=== PATIENT | male | born 1985 | race Caucasian/White ===

== ENCOUNTER 2017-08-18 14:58 | Emergency (ER) | payer SELFPAY ==
[~2017-08-18] VITALS: Ht 180.3 cm; Wt 95.0 kg
[2017-08-18 15:02] VITALS: BP 131/78; PULSE 64; RESP 19; TEMP 98.4; O2SAT 98
[2017-08-18] MEDS ORDERED: diphenhydrAMINE HCL 50 MG/ML VIAL IV PUSH ONE (15:15)
[2017-08-18] MEDS ORDERED: PROCHLORPERAZINE INJ 10 MG/2 ML VIAL IV PUSH ONE (15:15)
[2017-08-18] MEDS ORDERED: KETOROLAC TROMETHAMINE 30 MG/ML (IVP) VIAL IV PUSH ONE (15:15)
[2017-08-18] MEDS ORDERED: SODIUM CHLOR 0.9% 1000 ML INJ 1,000 ML IV ONE (15:15)
--- NOTE | 2017-08-18 15:25 | PD ---
HPI Chief Complaint: Headache Time Seen by Provider: 15:15 Travel History International Travel<30 days: No Contact w/Intl Traveler<30days: No Traveled to known affect area: No History of Present Illness HPI The patient is a 31-year-old male who presents to the emergency department via private vehicle for headache. The patient states he developed a headache several weeks ago. The patient notes he has a history of substance abuse and his mother took him to [place], [place], for rehabilitation. However, the rehabilitation center stated they could not help the patient secondary to his headache and referred him to [facility]. The patient was at and was admitted for a headache according to the mother. The mother states the patient had a CT of the brain as well as an MRI which apparently revealed some type of hydrocephalus with some type of cyst. The mother states that the patient was told he would need a procedure that [facility] was unable to perform. They attempted to transfer the patient to the [facility], however, [facility] would not accept the patient secondary to his insurance status. The mother states they were going to refer the patient to a neurosurgeon in [facility]. However, the mother then decided they would leave and the patient was discharged. The mother then drove from [place], [place] to the local hospital here in [place], [place] to be evaluated. The patient's headache is located in the posterior aspect of his head and radiates up to the front. He does complain of mild neck pain as well as photophobia, nausea, vomiting. He denies any urinary or fecal incontinence. He denies any weakness of the arms or legs. Symptoms are moderate. There have been no alleviating factors. PFSH Past Medical History Medical History: Denies Significant Hx Diminished Hearing: No Tetanus Vaccination: < 5 Years Influenza Vaccination: No ?: Not Past Surgical History Surgical History: No Previous Surgery Social History Alcohol Use: No (1 week clean) Tobacco Use: Yes (1 ppd) Substance Use: Yes (cocaine, dilaudid,opiates) Allergies-Medications (Allergen,Severity, Reaction): Coded Allergies: No Known Allergies (Unverified , 08/18/17) Reported Meds & Prescriptions Reported Meds & Active Scripts Active No Active Prescriptions or Reported Medications Review of Systems Except as stated in HPI: all other systems reviewed are Neg General / Constitutional: No: Fever, Chills Eyes: Positive: Photophobia, No: Blurred Vision HENT: Positive: Headaches, Neck Pain, No: Neck Stiffness Cardiovascular: No: Chest Pain or Discomfort Respiratory: No: Shortness of Breath Gastrointestinal: Positive: Nausea, Vomiting, No: Abdominal Pain Musculoskeletal: No: Weakness Neurologic: Positive: Headache, No: Weakness, Dizziness, Focal Abnormalities, Coordination Problem, Change in Mentation, Slurred Speech, Paresthesia, Sensory Disturbance Psychiatric: Positive: Substance Abuse Physical Exam Narrative GENERAL: Awake, alert, pleasant 31-year-old male who appears his stated age and is in no acute respiratory distress. SKIN: Focused skin assessment warm/dry. HEAD: Atraumatic. Normocephalic. EYES: Pupils equal and round. Pupils are 4 mm bilateral and reactive. EOMs are intact. ENT: No nasal bleeding or discharge. Mucous membranes pink and moist. NECK: Trachea midline. No JVD. Full range of motion with flexion and extension as well as rotation. No meningeal signs noted. CARDIOVASCULAR: Regular rate and rhythm. No murmur appreciated. RESPIRATORY: No accessory muscle use. Clear to auscultation. Breath sounds equal bilaterally. GASTROINTESTINAL: Abdomen soft, non-tender, nondistended. MUSCULOSKELETAL: No obvious deformities. No clubbing. No cyanosis. No edema. NEUROLOGICAL: Awake and alert. No obvious cranial nerve deficits. Motor grossly within normal limits. Normal speech. Nonfocal. No drift of the upper or lower extremities. Strength with flexion extension of the elbows bilateral is 5 out of 5. Regulatory Process Manager is 5 out of 5. Flexion of the hips bilateral is 5 out of 5. Extension the knee is 5 out of 5. Plantarflexion is 5 out of 5. Dorsiflexion 5 out of 5. Flexion the great toes bilateral is 5 out of 5. Sensation is intact on the upper and lower extremities bilaterally, and is symmetrical. PSYCHIATRIC: Appropriate mood and affect; insight and judgment normal. Data Data Last Documented VS Vital Signs Date Time Temp Pulse Resp B/P (MAP) Pulse Ox O2 Delivery O2 Flow Rate FiO2 08/18/17 21:36 67 18 119/64 (82) 97 Room Air 08/18/17 15:02 98.4 Orders Orders Mri Brain W&W/O Contrast (08/18/17 ) Complete Blood Count With Diff (08/18/17 15:15) Comprehensive Metabolic Panel (08/18/17 15:15) Westergren Sedimentation Rate (08/18/17 15:15) C-Reactive Protein (Crp) (08/18/17 15:15) Prochlorperazine Inj (Compazine Inj) (08/18/17 15:15) Diphenhydramine Inj (Benadryl Inj) (08/18/17 15:15) Ketorolac Inj (Toradol Inj) (08/18/17 15:15) Sodium Chlor 0.9% 1000 Ml Inj (Ns 1000 M (08/18/17 15:15) Gadodiamide Pf Inj (Omniscan Pf Inj) (08/18/17 16:35) Radiology Film Requests (08/18/17 ) Labs Laboratory Tests Test 08/18/17 15:20 White Blood Count 16.1 TH/MM3 Red Blood Count 5.24 MIL/MM3 Hemoglobin 15.9 GM/DL Hematocrit 46.5 % Mean Corpuscular Volume 88.8 FL Mean Corpuscular Hemoglobin 30.4 PG Mean Corpuscular Hemoglobin Concent 34.3 % Red Cell Distribution Width 12.8 % Platelet Count 244 TH/MM3 Mean Platelet Volume 9.3 FL Neutrophils (%) (Auto) 78.9 % Lymphocytes (%) (Auto) 14.0 % Monocytes (%) (Auto) 7.0 % Eosinophils (%) (Auto) 0.0 % Basophils (%) (Auto) 0.1 % Neutrophils # (Auto) 12.7 TH/MM3 Lymphocytes # (Auto) 2.3 TH/MM3 Monocytes # (Auto) 1.1 TH/MM3 Eosinophils # (Auto) 0.0 TH/MM3 Basophils # (Auto) 0.0 TH/MM3 CBC Comment DIFF FINAL Differential Comment Erythrocyte Sedimentation Rate 6 mm/hr Blood Urea Nitrogen 22 MG/DL Creatinine 1.09 MG/DL Random Glucose 118 MG/DL Total Protein 8.2 GM/DL Albumin 4.4 GM/DL Calcium Level 9.4 MG/DL Alkaline Phosphatase 71 U/L Aspartate Amino Transf (AST/SGOT) 12 U/L Alanine Aminotransferase (ALT/SGPT) 65 U/L Total Bilirubin 0.7 MG/DL Sodium Level 139 MEQ/L Potassium Level 4.0 MEQ/L Chloride Level 104 MEQ/L Carbon Dioxide Level 25.4 MEQ/L Anion Gap 10 MEQ/L Estimat Glomerular Filtration Rate 80 ML/MIN C-Reactive Protein LESS THAN 0.29 MG/DL [facility] Medical Decision Making Medical Screen Exam Complete: Yes Emergency Medical Condition: Yes Medical Record Reviewed: Yes Interpretation(s) Last Impressions Brain MRI 08/18/17 0000 Signed Impressions: CONCLUSION: 1. Unilateral right-sided lateral ventricular enlargement causing 13 mm midlin e shift of the third ventricle towards the left and narrowing of the aqueduct o f Sylvius. There is also asymmetric white matter edema in the right supratentor ial brain. 2. No abnormal enhancing masses seen Laboratory Tests Test 08/18/17 15:20 White Blood Count 16.1 TH/MM3 Red Blood Count 5.24 MIL/MM3 Hemoglobin 15.9 GM/DL Hematocrit 46.5 % Mean Corpuscular Volume 88.8 FL Mean Corpuscular Hemoglobin 30.4 PG Mean Corpuscular Hemoglobin Concent 34.3 % Red Cell Distribution Width 12.8 % Platelet Count 244 TH/MM3 Mean Platelet Volume 9.3 FL Neutrophils (%) (Auto) 78.9 % Lymphocytes (%) (Auto) 14.0 % Monocytes (%) (Auto) 7.0 % Eosinophils (%) (Auto) 0.0 % Basophils (%) (Auto) 0.1 % Neutrophils # (Auto) 12.7 TH/MM3 Lymphocytes # (Auto) 2.3 TH/MM3 Monocytes # (Auto) 1.1 TH/MM3 Eosinophils # (Auto) 0.0 TH/MM3 Basophils # (Auto) 0.0 TH/MM3 CBC Comment DIFF FINAL Differential Comment Blood Urea Nitrogen 22 MG/DL Creatinine 1.09 MG/DL Random Glucose 118 MG/DL Total Protein 8.2 GM/DL Albumin 4.4 GM/DL Calcium Level 9.4 MG/DL Alkaline Phosphatase 71 U/L Aspartate Amino Transf (AST/SGOT) 12 U/L Alanine Aminotransferase (ALT/SGPT) 65 U/L Total Bilirubin 0.7 MG/DL Sodium Level 139 MEQ/L Potassium Level 4.0 MEQ/L Chloride Level 104 MEQ/L Carbon Dioxide Level 25.4 MEQ/L Anion Gap 10 MEQ/L Estimat Glomerular Filtration Rate 80 ML/MIN C-Reactive Protein LESS THAN 0.29 MG/DL Differential Diagnosis Differential diagnosis includes migraine, hydrocephalus, obstructive hydrocephalus, subarachnoid cyst, Chiari malformation, brain tumor, tension headache, malingering, drug-seeking behavior, rebound headache. Narrative Course IV was established, labs are drawn and sent, the patient was placed on cardiac telemetry monitoring and continuous pulse oximetry monitoring. MRI the brain with and without contrast was ordered. An attempt to obtain the records from was performed. The patient was administered Toradol, Compazine, Benadryl, and IV fluids. Laboratory evaluation reveals a mildly elevated white count of 16, otherwise, labs are unremarkable. MRI of the brain does reveal an abnormality with unilateral obstruction of the third ventricle with midline shift. I discussed the patient with the on-call neurosurgeon, Dr. Reyes, 6:30 PM who will evaluate the MRI and review the MRI with the radiologist. Dr. Reyes evaluated the MRI and recommended transfer to a tertiary center. The patient was transferred by Dr. Chávez. Diagnosis Primary Impression: Hydrocephalus Scripts No Active Prescriptions or Reported Meds Disposition: 70 TRANSFER TO OTHER FACILITY Condition: Stable Leodan Muhammad MD Aug 18, 2017 15:25
[2017-08-18 15:32] LABS: AUTOMATED NEUTROPHIL # 12.7 TH/MM3 (1.8-7.7); BASOPHIL % 0.1 % (0.0-2.0); HEMATOCRIT 46.5 % (39.0-51.0); HEMOGLOBIN 15.9 GM/DL (13.0-17.0); LYMPHOCYTE # 2.3 TH/MM3 (1.0-4.8); MEAN CELL VOLUME 88.8 FL (80.0-100.0); MEAN CORPUSCULAR HEMOGLOBIN 30.4 PG (27.0-34.0); MEAN CORPUSCULAR HGB CONC 34.3 % (32.0-36.0); MEAN PLATELET VOLUME 9.3 FL (7.0-11.0); MONOCYTE # 1.1 TH/MM3 (0-0.9); NEUT % 78.9 % (16.0-70.0); PLATELET COUNT 244 TH/MM3 (150-450); RED BLOOD COUNT 5.24 MIL/MM3 (4.50-5.90); RED CELL DISTRIBUTION WIDTH 12.8 % (11.6-17.2); WHITE BLOOD COUNT 16.1 TH/MM3 (4.0-11.0)
[2017-08-18 16:03] LABS: ALBUMIN 4.4 GM/DL (3.4-5.0); ALT (GPT) 65 U/L (12-78); AST (GOT) 12 U/L (15-37); BICARBONATE 25.4 MEQ/L (21.0-32.0); BLOOD UREA NITROGEN 22 MG/DL (7-18); C-REACTIVE PROTEIN LESS THAN 0.29 MG/DL (0.00-0.30); CALCIUM 9.4 MG/DL (8.5-10.1); CHLORIDE 104 MEQ/L (98-107); CREATININE 1.09 MG/DL (0.60-1.30); GLOMERULAR FILTRATION RATE 80 ML/MIN (>89); GLUCOSE,RANDOM 118 MG/DL (74-106); SODIUM (NA) 139 MEQ/L (136-145)
[2017-08-18 16:05] LABS: ALKALINE PHOSPHATASE 71 U/L (45-117); TOTAL BILIRUBIN ADULT 0.7 MG/DL (0.2-1.0); TOTAL PROTEIN 8.2 GM/DL (6.4-8.2)
[2017-08-18] MEDS ORDERED: GADODIAMIDE PF 287 MG/ML 20 ML VIAL (for RAD MRI) IVCONTRAST ONE (16:35)
[2017-08-18 17:07] VITALS: BP 114/69; PULSE 55; RESP 16; O2SAT 99
--- NOTE | 2017-08-18 17:10 | RADRPT ---
EXAM DATE: 08/18/2017 4:48 PM EDT AGE/SEX: 31 years / Male INDICATIONS: Cephalgia. CLINICAL DATA: This is the patient's initial encounter. Patient reports that signs and symptoms have been present for 2 days and indicates a pain score of 4/10. MEDICAL/SURGICAL HISTORY: None. None. COMPARISON: No prior exams available for comparison. TECHNIQUE: Multiplanar, multisequence examination of the brain was performed without and with 18cc ml Omniscan (gadodiamide) contrast as a single exam dose. FINDINGS: Cerebrum: There is unilateral hydrocephalus on the right side with dilation of the lateral ventricle and deviation of the third ventricle towards the left. The left lateral ventricle is normal in size. No definite mass seen. The cause of the ventricular obstruction is not evident. There is narrowing o f the aqueduct of Sylvius. There is a lacunar infarct in the genu of the right internal capsule. No f ocal blood products seen. No focal areas of restricted diffusion. There is mild diffuse white matter edema in the right supratentorial brain. The cortex of the left and right hemisphere as a symmetric a ppearance. White Matter: No significant signal abnormalities are seen in the white matter. Posterior Fossa: The cerebellum and brainstem are intact. The 4th ventricle is midline. The cerebel lopontine angle is unremarkable. The cerebellar tonsils are normal in position. Extracranial: The visualized portions of the orbits and paranasal sinuses are unremarkable. There is hypertrophy of the atlantoaxial articulation causing some narrowing of the craniocervical canal, but there is still CSF seen about the brainstem. Post Contrast: No abnormal areas of parenchymal or dural enhancement. No evidence of blood-brain ba rrier breakdown. CONCLUSION: 1. Unilateral right-sided lateral ventricular enlargement causing 13 mm midline shift of the third v entricle towards the left and narrowing of the aqueduct of Sylvius. There is also asymmetric white ma tter edema in the right supratentorial brain. 2. No abnormal enhancing masses seen Electronically signed by: Felix Hinds MD 08/18/2017 5:09 PM EDT
--- NOTE | 2017-08-18 21:09 | PD ---
Data Data Last Documented VS Vital Signs Date Time Temp Pulse Resp B/P (MAP) Pulse Ox O2 Delivery O2 Flow Rate FiO2 08/18/17 17:07 55 16 114/69 (84) 99 Room Air 08/18/17 15:02 98.4 Orders Orders Mri Brain W&W/O Contrast (08/18/17 ) Complete Blood Count With Diff (08/18/17 15:15) Comprehensive Metabolic Panel (08/18/17 15:15) Westergren Sedimentation Rate (08/18/17 15:15) C-Reactive Protein (Crp) (08/18/17 15:15) Prochlorperazine Inj (Compazine Inj) (08/18/17 15:15) Diphenhydramine Inj (Benadryl Inj) (08/18/17 15:15) Ketorolac Inj (Toradol Inj) (08/18/17 15:15) Sodium Chlor 0.9% 1000 Ml Inj (Ns 1000 M (08/18/17 15:15) Gadodiamide Pf Inj (Omniscan Pf Inj) (08/18/17 16:35) Labs Laboratory Tests Test 08/18/17 15:20 White Blood Count 16.1 TH/MM3 Red Blood Count 5.24 MIL/MM3 Hemoglobin 15.9 GM/DL Hematocrit 46.5 % Mean Corpuscular Volume 88.8 FL Mean Corpuscular Hemoglobin 30.4 PG Mean Corpuscular Hemoglobin Concent 34.3 % Red Cell Distribution Width 12.8 % Platelet Count 244 TH/MM3 Mean Platelet Volume 9.3 FL Neutrophils (%) (Auto) 78.9 % Lymphocytes (%) (Auto) 14.0 % Monocytes (%) (Auto) 7.0 % Eosinophils (%) (Auto) 0.0 % Basophils (%) (Auto) 0.1 % Neutrophils # (Auto) 12.7 TH/MM3 Lymphocytes # (Auto) 2.3 TH/MM3 Monocytes # (Auto) 1.1 TH/MM3 Eosinophils # (Auto) 0.0 TH/MM3 Basophils # (Auto) 0.0 TH/MM3 CBC Comment DIFF FINAL Differential Comment Blood Urea Nitrogen 22 MG/DL Creatinine 1.09 MG/DL Random Glucose 118 MG/DL Total Protein 8.2 GM/DL Albumin 4.4 GM/DL Calcium Level 9.4 MG/DL Alkaline Phosphatase 71 U/L Aspartate Amino Transf (AST/SGOT) 12 U/L Alanine Aminotransferase (ALT/SGPT) 65 U/L Total Bilirubin 0.7 MG/DL Sodium Level 139 MEQ/L Potassium Level 4.0 MEQ/L Chloride Level 104 MEQ/L Carbon Dioxide Level 25.4 MEQ/L Anion Gap 10 MEQ/L Estimat Glomerular Filtration Rate 80 ML/MIN C-Reactive Protein LESS THAN 0.29 MG/DL MDM Medical Record Reviewed: Yes Supervised Visit with IGNACIO: No Narrative Course Patient was seen by Dr. Reyes, neurosurgeon. Patient will be transferred to [facility] for further treatment. Diagnosis Primary Impression: Hydrocephalus Scripts No Active Prescriptions or Reported Meds Condition: Stable Laura Chávez DO Aug 18, 2017 21:09
--- NOTE | 2017-08-18 21:21 | PD.CONS ---
History of Present Illness Service Neurosurgery Consult Requested By Emergency room Reason for Consult Hydrocephalus Primary Care Physician No Primary Care Physician Diagnoses: History of Present Illness 31-year-old male brought to the emergency room today by his family. The patient complains of a few weeks, possibly a few months of mild to moderate intermittent headache. The headache has become quite a bit more severe in the past couple of weeks. Apparently at least partly due to the headache, he has been using alcohol and other substances to try to control the pain. His family took him to the substance rehabilitation Center in [place]. His headaches remain uncontrolled and they discharged him to [facility] in [place] for neurology and neurosurgery evaluation. He was seen for neurosurgical consultation yesterday, and was felt to potentially need a ventricular endoscopic procedure. The family states that a second neurosurgeon saw the patient this morning and advised him that it would take the hospital a week to get the equipment, and the neurosurgeon experienced in endoscopic procedures would be gone from the hospital for a week. He was subsequently discharged to the care of his family today. His mother states that the patient has been progressively lethargic for the past couple of days. He has complained of an extremely severe headache for 2 days. He has had nausea and emesis. He had one episode of emesis before he left the hospital this morning, and another episode since he left. He does complain of photophobia as well as approximately a week of progressive neck pain and stiffness. He denies any fevers chills or sweats. Review of Systems Constitutional: DENIES: Fever, Chills, Dizziness Ears, nose, mouth, throat: DENIES: Hearing loss, Vertigo, Throat pain, Ear Pain Cardiovascular: DENIES: Chest pain Gastrointestinal: COMPLAINS OF: Nausea, Vomiting, DENIES: Abdominal pain Musculoskeletal: COMPLAINS OF: Muscle aches, Stiffness, Neck pain, DENIES: Joint pain Hematologic/lymphatic: DENIES: Bruising Neurologic: COMPLAINS OF: Headache, DENIES: Abnormal gait Psychiatric: DENIES: Confusion Past Family Social History Allergies: Coded Allergies: No Known Allergies (Unverified , 08/18/17) Past Medical History No history of significant cardiac pulmonary gastrointestinal disease diabetes or hypertension Past Surgical History No major surgeries reported Reported Medications Reported Meds & Active Scripts Active No Active Prescriptions or Reported Medications Social History Smokes 1 pack cigarettes a day History of excessive alcohol use history of substance abuse. Physical Exam Vital Signs Vital Signs Date Time Temp Pulse Resp B/P (MAP) Pulse Ox O2 Delivery O2 Flow Rate FiO2 08/18/17 17:07 55 16 114/69 (84) 99 Room Air 08/18/17 15:02 98.4 64 19 131/78 (95) 98 Physical Exam GENERAL: This is a well-nourished, well-developed patient, appears uncomfortable in the emergency room SKIN: No rashes, ecchymoses or lesions. Cool and dry. HEAD: Atraumatic. Normocephalic. No temporal or scalp tenderness. EYES: Sclera clear and nonicteric ENT: Oropharynx clear. No cervical lymphadenopathy NECK: Moderate diffuse cervical paraspinous muscle tenderness. Complains of neck discomfort with range of motion but no definite nuchal rigidity CARDIOVASCULAR: Pulse regular RESPIRATORY: Respirations clear, nonlabored, regular GASTROINTESTINAL: Abdomen soft, non-tender, nondistended. No hepato-splenomegaly , or palpable masses. No guarding. MUSCULOSKELETAL: Extremities without clubbing, cyanosis, or edema. No joint tenderness, effusion, or edema noted. No calf tenderness. NEUROLOGICAL: Mild to moderate lethargy. He falls asleep readily if not stimulated. He arouses readily to voice His speech is clear He answers simple questions appropriately Appears to have diminished judgment and insight Exhibits mild anxiety Moderate eye-opening Pupils 3 mm brisk reactive to 2 mm Extraocular movements intact except for question of mild impairment of upward gaze. Visual king intact to confrontation Facial sensorimotor, tongue, palate, sternocleidomastoid testing, bilateral shoulder shrug are intact Sensation intact light touch all extremities Strength within normal limits all extremity major flexion and extension groups Isabel's response absent bilateral No ankle clonus Laboratory Laboratory Tests Test 08/18/17 15:20 White Blood Count 16.1 Red Blood Count 5.24 Hemoglobin 15.9 Hematocrit 46.5 Mean Corpuscular Volume 88.8 Mean Corpuscular Hemoglobin 30.4 Mean Corpuscular Hemoglobin Concent 34.3 Red Cell Distribution Width 12.8 Platelet Count 244 Mean Platelet Volume 9.3 Neutrophils (%) (Auto) 78.9 Lymphocytes (%) (Auto) 14.0 Monocytes (%) (Auto) 7.0 Eosinophils (%) (Auto) 0.0 Basophils (%) (Auto) 0.1 Neutrophils # (Auto) 12.7 Lymphocytes # (Auto) 2.3 Monocytes # (Auto) 1.1 Eosinophils # (Auto) 0.0 Basophils # (Auto) 0.0 CBC Comment DIFF FINAL Differential Comment Blood Urea Nitrogen 22 Creatinine 1.09 Random Glucose 118 Total Protein 8.2 Albumin 4.4 Calcium Level 9.4 Alkaline Phosphatase 71 Aspartate Amino Transf (AST/SGOT) 12 Alanine Aminotransferase (ALT/SGPT) 65 Total Bilirubin 0.7 Sodium Level 139 Potassium Level 4.0 Chloride Level 104 Carbon Dioxide Level 25.4 Anion Gap 10 Estimat Glomerular Filtration Rate 80 C-Reactive Protein LESS THAN 0.29 Result Diagram: 08/18/17 1520 08/18/17 1520 Imaging 08/18/2017 MRI brain images are reviewed. MRI brain with and without contrast report from [facility] is reviewed. There is at least moderate right and mild left ventriculomegaly with subtle enhancement along the frontal horn of the right and left lateral ventricle extending across the region of the corpus callosum . Brain MRI 08/18/17 0000 Signed Impressions: CONCLUSION: 1. Unilateral right-sided lateral ventricular enlargement causing 13 mm midlin e shift of the third ventricle towards the left and narrowing of the aqueduct o f Sylvius. There is also asymmetric white matter edema in the right supratentor ial brain. 2. No abnormal enhancing masses seen Assessment and Plan Assessment and Plan Impression: 1. Right greater than left asymmetric hydrocephalus. Possible subtle enhancement along the ventricle extending towards the interventricular foramen. Plan: Findings were discussed at length with the patient's family in the emergency room. I advised him that a ventriculostomy could be placed with cultures and CSF cytology obtained. Depending on results a ventriculoperitoneal shunt could be placed. However this would not be a definitive treatment for the underlying cause of the hydrocephalus. Option of transfer to tertiary care center for further evaluation including possible endoscopic ventricular procedure discussed. Call placed to [facility] transfer center. Patient accepted for transfer following discussion with neurosurgery. Patient family advised and agree with this plan. Patient presently appears neurologically stable for ground transfer. Maximus Reyes MD Aug 18, 2017 21:21
[2017-08-18 21:36] VITALS: BP 119/64; PULSE 67; RESP 18; O2SAT 97
== END 2017-08-18 22:50 | disposition short-term general hospital (02) ==
LOC: NEPE 14:58
DX: G91.9 Hydrocephalus, unspecified (principal); M54.2 Cervicalgia; R11.2 Nausea with vomiting, unspecified; H53.149 Visual discomfort, unspecified; F17.210 Nicotine dependence, cigarettes, uncomplicated; F14.10 Cocaine abuse, uncomplicated; F11.10 Opioid abuse, uncomplicated
CPT/HCPCS: 70553; 80053; 85025; 85652; 86140; 96361; 96374; 99285; A9579; J0780; J1200; J1885; J7030

== ENCOUNTER 2017-08-23 19:11 | Inpatient (IN) | payer SELFPAY ==
[~2017-08-23] VITALS: Ht 180.3 cm; Wt 92.0 kg
[2017-08-23] MEDS ORDERED: NALOXONE HCL 0.4 MG/ML AMP IV PUSH PRN (19:45)
[2017-08-23 20:00] VITALS: BP 120/72; PULSE 67; RESP 18; TEMP 97.8; O2SAT 100
[2017-08-23] MEDS ORDERED: BUTATAB6 PO (23:04)
[2017-08-23] MEDS ORDERED: LEVE500T8 PO (23:06)
[2017-08-23] MEDS ORDERED: METR1INJ2 (23:12)
[2017-08-23] MEDS: ACETAMIN 325 MG/BUTALBITAL 50 MG/CAFFEINE 40 MG TAB PO PRN (23:52)
[2017-08-24 00:59] VITALS: BP 126/77; PULSE 77; RESP 18; TEMP 98; O2SAT 98
[2017-08-24] MEDS: NICOTINE 14 MG/24 HR PATCH T-DERMAL SCH ×2 (00:59→07:13)
[2017-08-24] MEDS: metroNIDAZOLE 500 MG INJ 100 ML IV SCH ×3 (00:59→22:24)
[2017-08-24] MEDS: levETIRAcetam 500 MG TAB PO SCH ×2 (07:12→20:50)
[2017-08-24] MEDS: REMOVE OLD PATCH T-DERMAL SCH (07:13)
[2017-08-24] MEDS: ACETAMIN 325 MG/BUTALBITAL 50 MG/CAFFEINE 40 MG TAB PO PRN ×2 (07:13→21:44)
[2017-08-24 07:37] VITALS: BP 109/75; PULSE 67; RESP 18; TEMP 98.2; O2SAT 98
[2017-08-24 08:21] LABS: AUTOMATED NEUTROPHIL # 3.8 TH/MM3 (1.8-7.7); BASOPHIL # 0.1 TH/MM3 (0-0.2); BASOPHIL % 0.8 % (0.0-2.0); EOSINOPHIL # 0.1 TH/MM3 (0-0.4); HEMATOCRIT 41.1 % (39.0-51.0); HEMOGLOBIN 13.9 GM/DL (13.0-17.0); LYMPH % 36.3 % (9.0-44.0); LYMPHOCYTE # 2.7 TH/MM3 (1.0-4.8); MEAN CELL VOLUME 89.8 FL (80.0-100.0); MEAN CORPUSCULAR HEMOGLOBIN 30.4 PG (27.0-34.0); MEAN CORPUSCULAR HGB CONC 33.9 % (32.0-36.0); MEAN PLATELET VOLUME 10.7 FL (7.0-11.0); MONO % 9.2 % (0.0-8.0); MONOCYTE # 0.7 TH/MM3 (0-0.9); NEUT % 51.7 % (16.0-70.0); PLATELET COUNT 185 TH/MM3 (150-450); RED BLOOD COUNT 4.57 MIL/MM3 (4.50-5.90); RED CELL DISTRIBUTION WIDTH 12.6 % (11.6-17.2); WHITE BLOOD COUNT 7.4 TH/MM3 (4.0-11.0)
[2017-08-24 08:40] LABS: BICARBONATE 23.3 MEQ/L (21.0-32.0); CALCIUM 9.4 MG/DL (8.5-10.1); CREATININE 0.86 MG/DL (0.60-1.30)
--- NOTE | 2017-08-24 09:35 | RADRPT ---
EXAM DATE: 08/24/2017 9:28 AM EDT AGE/SEX: 31 years / Male INDICATIONS: Post ventriculostomy. CLINICAL DATA: This is the patient's initial encounter. Patient reports that signs and symptoms have been present for 1 day and indicates a pain score of 0/10. MEDICAL/SURGICAL HISTORY: None. . ventriculostomy. RADIATION DOSE: 38.53 CTDI (mGy) COMPARISON: [facility], MRI BRAIN W & W/O CONTRAST, 08/18/2017. . TECHNIQUE: CT of the head without contrast. Using automated exposure control and adjustment of the mA and/or kV according to patient size, radiation dose was kept as low as reasonably achievable to ob tain optimal diagnostic quality images. FINDINGS: There has been interval decrease in the size of the right ventricle compared to the previou s MRI dated 08/18/2017. There has also been resolution of the previously noted subfalcine herniation to the left. Old lacunar infarct is noted within the right basal ganglia. There is no acute hemorrhage, mass effect or extra-axial bleed. The patient demonstrates a defect within the right frontal bone li bridgett related to previous ventriculostomy. No radiopaque shunt is identified on today's examination. CONCLUSION: 1. Interval improvement of the right ventricular dilatation and subfalcine herniation to the left. 2. 2. Old lacunar infarct within the right basal ganglia. 3. 3. No acute hemorrhage, acute infarct, mass effect or extra-axial bleed. Electronically signed by: Irineo Haley MD 08/24/2017 9:34 AM EDT
[2017-08-24 12:10] VITALS: BP 119/78; PULSE 92; RESP 18; TEMP 97.9; O2SAT 100
[2017-08-24 16:12] VITALS: BP 129/82; PULSE 83; RESP 20; TEMP 98.3; O2SAT 99
--- NOTE | 2017-08-24 19:28 | HHI.HP ---
HPI Service Neurosurgery Primary Care Physician Unknown Chief Complaint: Headache History of Present Illness 31-year-old male with a history of substance abuse including IV drug abuse who was recently admitted to inpatient rehabilitation center in [place] for treatment. In the treatment center, he experienced progressive headaches and blurred vision with nausea and was discharged to [facility] in [place] on 08/16/2017 for evaluation. He was seen by neurosurgery. An MRI reported positive hydrocephalus. He was felt to be a candidate for an endoscopic terminal ventriculostomy procedure. Since the procedure was not readily available at the hospital, he was discharged to the care of his family on 08/18/2017. He presented to [facility] on the early evening of 08/18/2017 with persistent headache, blurred vision, lethargy, nausea and emesis. A follow -up scan showed persistent primarily right-sided ventriculomegaly without a definite obstructive lesion. He was transferred directly to [facility] for evaluation. He underwent an initial ventriculostomy placement, followed by surgery for endoscopic terminal ventriculostomy. He remained initially in the neurosurgical intensive care postoperatively. He was seen by infectious disease. Specific cause for the hydrocephalus was not determined. There was a question of ventriculitis related to Endo toxins secondary to the patient using cotton filter during IV drug use a few weeks prior to his admission. It was elected to place the patient on IV cefepime 6 g continuous infusion, vancomycin 1250 mg IV every 8 hours with vancomycin goal level 15-20, and Flagyl 500 mg IV every 8 hours with transitioning to oral Flagyl on discharge, all with stop date 09/04/2017. The patient was transferred back to [facility] on the evening of 08/23/2017. Discharge summary with recommendations received from [facility] today. Review of Systems Constitutional: COMPLAINS OF: Fatigue, DENIES: Fever Eyes: COMPLAINS OF: Blurred vision Ears, nose, mouth, throat: DENIES: Hearing loss, Throat pain Cardiovascular: DENIES: Chest pain Gastrointestinal: DENIES: Abdominal pain, Diarrhea, Nausea, Vomiting Musculoskeletal: DENIES: Joint pain, Muscle aches Hematologic/lymphatic: DENIES: Bruising Neurologic: COMPLAINS OF: Headache, DENIES: Abnormal gait Psychiatric: COMPLAINS OF: Anxiety Past Family Social History Allergies: Coded Allergies: No Known Allergies (Unverified , 08/18/17) Past Medical History No history of significant cardiac pulmonary gastrointestinal disease diabetes hypertension. Hydrocephalus Recent diagnosis hepatitis C antibody positive. Hepatitis C viral load results pending at the time of discharge from [facility]. Past Surgical History Endoscopic terminal ventriculostomy August 2017 Reported Medications Reported Meds & Active Scripts Active Reported Metronidazole 500-0.79 mg/100Ml-% (Metronidazole in NaCl) 500 Mg/100 Ml Inj Levetiracetam 500 Mg Tab 500 Mg PO BID Osporjxdgw-Einixjidizijp-Zahyqkhc 50-325-40 Mg Tab 1 Tab PO Q4HR Do not exceed 6 tablets/day. Antibiotics as noted above Family History Negative neurologic disorders, cardiac disease Social History Substance abuse Smokes 1 pack cigarettes per day History of excessive alcohol use Physical Exam Vital Signs Vital Signs Date Time Temp Pulse Resp B/P (MAP) Pulse Ox O2 Delivery O2 Flow Rate FiO2 08/24/17 16:12 98.3 83 20 129/82 (98) 99 08/24/17 12:10 97.9 92 18 119/78 (92) 100 08/24/17 07:37 98.2 67 18 109/75 (86) 98 08/24/17 00:59 98.0 77 18 126/77 (93) 98 08/23/17 20:00 97.8 67 18 120/72 (88) 100 Physical Exam GENERAL: This is a well-nourished, well-developed patient, no apparent distress. SKIN: No abrasions, contusion, rash noted. Skin warm and dry. HEAD: Right frontal incision dry and intact EYES: Sclerae are clear and nonicteric ENT: No facial edema or ecchymosis. No periorbital edema. No CSF otorrhea or rhinorrhea. No palpable facial fracture or deformity. NECK: Trachea midline. No cervical spine tenderness. CARDIOVASCULAR: Regular rate and rhythm without murmurs, gallops, or rubs. RESPIRATORY: Clear to auscultation. Breath sounds equal bilaterally. No wheezes , rales, or rhonchi. GASTROINTESTINAL: Abdomen soft, non-tender, nondistended. No hepato-splenomegaly , or palpable masses. No guarding. MUSCULOSKELETAL: Extremities without cyanosis, or edema. No joint tenderness, or edema noted. No calf tenderness. Dorsalis pedis pulses 2+ bilateral NEUROLOGICAL: Awake and alert Oriented X 3 Speech is clear Conversant and appropriate Follow simple commands well Answers questions appropriately Reasonable judgment and insight Recent and remote memory are intact No evidence of anxiety or depression Pupils are equal and reactive to accommodation. Extra-ocular movements, visual king to confrontation, facial sensorimotor, tongue, palate, sternocleidomastoid testing, hearing to finger rub testing, and bilateral shoulder shrug are all intact. Sensation is intact to light touch in all extremities Strength normal major flexion and extension groups all extremities Dariana's absent bilaterally No ankle clonus Plantar responses absent bilateral Fine motor movements intact upper extremities Laboratory Laboratory Tests Test 08/24/17 06:13 White Blood Count 7.4 Red Blood Count 4.57 Hemoglobin 13.9 Hematocrit 41.1 Mean Corpuscular Volume 89.8 Mean Corpuscular Hemoglobin 30.4 Mean Corpuscular Hemoglobin Concent 33.9 Red Cell Distribution Width 12.6 Platelet Count 185 Mean Platelet Volume 10.7 Neutrophils (%) (Auto) 51.7 Lymphocytes (%) (Auto) 36.3 Monocytes (%) (Auto) 9.2 Eosinophils (%) (Auto) 2.0 Basophils (%) (Auto) 0.8 Neutrophils # (Auto) 3.8 Lymphocytes # (Auto) 2.7 Monocytes # (Auto) 0.7 Eosinophils # (Auto) 0.1 Basophils # (Auto) 0.1 CBC Comment DIFF FINAL Differential Comment Blood Urea Nitrogen 8 Creatinine 0.86 Random Glucose 78 Calcium Level 9.4 Sodium Level 144 Potassium Level 3.7 Chloride Level 109 Carbon Dioxide Level 23.3 Anion Gap 12 Estimat Glomerular Filtration Rate 105 Result Diagram: 08/24/1761208/24/17612 Caprini VTE Risk Assessment Caprini VTE Risk Assessment: No/Low Risk (score <= 1) Caprini Risk Assessment Model Point Value = 1 Point Value = 2 Point Value = 3 Point Value = 5 Age 41-60 Minor surgery BMI > 25 kg/m2 Swollen legs Varicose veins or History of unexplained or recurrent spontaneous Oral contraceptives or hormone replacement Sepsis (< 1 month) Serious lung disease, including pneumonia (< 1 month) Abnormal pulmonary function Acute myocardial infarction Congestive heart failure (< 1 month) History of inflammatory bowel disease Medical patient at bed rest Age 61-74 Arthroscopic surgery Major open surgery (> 45 min) Laparoscopic surgery (> 45 min) Malignancy Confined to bed (> 72 hours) Immobilizing plaster cast Central venous access Age >= 75 History of VTE Family history of VTE Factor V Leiden Prothrombin [id number] Lupus anticoagulant Anticardiolipin antibodies Elevated serum homocysteine Heparin-induced thrombocytopenia Other congenital or acquired thrombophilia Stroke (< 1 month) Elective arthroplasty Hip, pelvis, or leg fracture Acute spinal cord injury (< 1 month) Prophylaxis Regimen Total Risk Factor Score Risk Level Prophylaxis Regimen 0-1 Low Early ambulation 2 Moderate Order ONE of the following: *Sequential Compression Device (SCD) *Heparin 5000 units SQ BID 3-4 Higher Order ONE of the following medications: *Heparin 5000 units SQ TID *Enoxaparin/Lovenox 40 mg SQ daily (WT < 150 kg, CrCl > 30 mL/min) *Enoxaparin/Lovenox 30 mg SQ daily (WT < 150 kg, CrCl > 10-29 mL/min) *Enoxaparin/Lovenox 30 mg SQ BID (WT < 150 kg, CrCl > 30 mL/min) AND/OR *Sequential Compression Device (SCD) 5 or more Highest Order ONE of the following medications: *Heparin 5000 units SQ TID (Preferred with Epidurals) *Enoxaparin/Lovenox 40 mg SQ daily (WT < 150 kg, CrCl > 30 mL/min) *Enoxaparin/Lovenox 30 mg SQ daily (WT < 150 kg, CrCl > 10-29 mL/min) *Enoxaparin/Lovenox 30 mg SQ BID (WT < 150 kg, CrCl > 30 mL/min) AND *Sequential Compression Device (SCD) Assessment and Plan Assessment and Plan Impression: 1. Recent diagnosis of hydrocephalus, probable ventriculitis. Possible related to IV drug use. 2. Substance abuse 3. Possible hepatitis C-laboratory results pending at time of discharge from [facility] Plan: Continue IV cefepime, vancomycin, Flagyl pending further infectious disease evaluation and recommendations. Tiffany for seizure prophylaxis Nicotine patch Physical therapy assessment Maximus Reyes MD Aug 24, 2017 19:28
[2017-08-24 19:52] VITALS: BP 136/76; PULSE 84; RESP 20; TEMP 98.5; O2SAT 100
[2017-08-24] MEDS: CEFEPIME INJ 2,000 MG in SODIUM CHLORIDE 0.9% INJ 100 ML IV SCH (20:50)
[2017-08-24] MEDS: VANCOMYCIN INJ 1,250 MG in SODIUM CHLOR 0.9% 250 ML INJ 250 ML IV SCH (21:33)
[2017-08-25 00:24] VITALS: BP 130/81; PULSE 84; RESP 20; TEMP 98.6; O2SAT 99
[2017-08-25] MEDS: CEFEPIME INJ 2,000 MG in SODIUM CHLORIDE 0.9% INJ 100 ML IV SCH ×3 (04:20→21:51)
[2017-08-25 04:44] VITALS: BP 115/77; PULSE 67; RESP 18; TEMP 97.6; O2SAT 100
[2017-08-25] MEDS: VANCOMYCIN INJ 1,250 MG in SODIUM CHLOR 0.9% 250 ML INJ 250 ML IV SCH ×3 (04:57→21:51)
[2017-08-25] MEDS: metroNIDAZOLE 500 MG INJ 100 ML IV SCH ×3 (06:04→21:51)
[2017-08-25] MEDS: levETIRAcetam 500 MG TAB PO SCH ×2 (07:26→21:50)
[2017-08-25] MEDS: REMOVE OLD PATCH T-DERMAL SCH (07:27)
[2017-08-25] MEDS: NICOTINE 14 MG/24 HR PATCH T-DERMAL SCH (07:27)
[2017-08-25 08:00] VITALS: BP_SYST 123; BP_SYST 153; BP_DIAS 88; BP_DIAS 97; PULSE 79; PULSE 97; RESP 18; TEMP 98; TEMP 98.2; O2SAT 94; O2SAT 99
[2017-08-25] MEDS ORDERED: Vancomycin Consult Pharmacy 1 EA OTHER PRN (11:30)
[2017-08-25 12:00] VITALS: BP 114/67; PULSE 93; RESP 18; TEMP 98; O2SAT 98
[2017-08-25 16:00] VITALS: BP 134/67; PULSE 68; RESP 18; TEMP 98; O2SAT 98
[2017-08-25 20:50] VITALS: BP 137/90; PULSE 87; RESP 16; TEMP 97.9; O2SAT 97
[2017-08-25] MEDS: ACETAMIN 325 MG/BUTALBITAL 50 MG/CAFFEINE 40 MG TAB PO PRN (21:50)
[2017-08-26 00:15] VITALS: BP 128/88; PULSE 65; RESP 16; TEMP 97.9; O2SAT 98
[2017-08-26 04:40] VITALS: BP 107/60; PULSE 78; RESP 17; TEMP 97.3; O2SAT 97
[2017-08-26] MEDS: CEFEPIME INJ 2,000 MG in SODIUM CHLORIDE 0.9% INJ 100 ML IV SCH ×3 (05:07→20:32)
[2017-08-26] MEDS: metroNIDAZOLE 500 MG INJ 100 ML IV SCH ×3 (05:08→20:33)
[2017-08-26] MEDS: VANCOMYCIN INJ 1,250 MG in SODIUM CHLOR 0.9% 250 ML INJ 250 ML IV SCH ×3 (05:08→20:32)
[2017-08-26] MEDS ORDERED: PHARMACY ORDERED LAB ONE (05:45)
[2017-08-26] MEDS: REMOVE OLD PATCH T-DERMAL SCH (07:10)
[2017-08-26] MEDS: levETIRAcetam 500 MG TAB PO SCH ×2 (07:10→20:33)
[2017-08-26] MEDS: NICOTINE 14 MG/24 HR PATCH T-DERMAL SCH (07:10)
[2017-08-26 07:31] LABS: CREATININE 0.97 MG/DL (0.60-1.30)
[2017-08-26 07:33] LABS: VANCOMYCIN TROUGH 16.4 MCG/ML (5.0-10.0)
[2017-08-26 08:00] VITALS: BP 117/81; PULSE 77; RESP 20; TEMP 97.9; O2SAT 100
--- NOTE | 2017-08-26 11:16 | HHI.NSPN ---
History Chief Complaint: Left 5th finger pain. Interval History 31-year-old male with a history of substance abuse including IV drug abuse who was recently admitted to inpatient rehabilitation center in [place] for treatment. In the treatment center, he experienced progressive headaches and blurred vision with nausea and was discharged to [facility] in [place] on 08/16/2017 for evaluation. He was seen by neurosurgery. An MRI reported positive hydrocephalus. He was felt to be a candidate for an endoscopic terminal ventriculostomy procedure. Since the procedure was not readily available at the hospital, he was discharged to the care of his family on 08/18/2017. He presented to [facility] on the early evening of 08/18/2017 with persistent headache, blurred vision, lethargy, nausea and emesis. A follow -up scan showed persistent primarily right-sided ventriculomegaly without a definite obstructive lesion. He was transferred directly to [facility] for evaluation. He underwent an initial ventriculostomy placement, followed by surgery for endoscopic terminal ventriculostomy. He remained initially in the neurosurgical intensive care postoperatively. He was seen by infectious disease. Specific cause for the hydrocephalus was not determined. There was a question of ventriculitis related to Endo toxins secondary to the patient using cotton filter during IV drug use a few weeks prior to his admission. It was elected to place the patient on IV cefepime 6 g continuous infusion, vancomycin 1250 mg IV every 8 hours with vancomycin goal level 15-20, and Flagyl 500 mg IV every 8 hours with transitioning to oral Flagyl on discharge, all with stop date 09/04/2017. The patient was transferred back to [facility] on the evening of 08/23/2017. Discharge summary with recommendations received from [facility] today. 08/26/17: Pt awake and alert. Denies headaches. No nausea or vomiting. Pt states he has pain left 5th finger from jamming it and thinks he may have fractured it. Review of Systems General: Negative for: fever, chills, insomnia Respiratory: Negative for: shortness of breath, cough, sputum Cardiovascular: Negative for: chest pain Gastrointestinal: Negative for: nausea, vomitting, diarrhea, constipation Exam Results Vital Signs Date Time Temp Pulse Resp B/P (MAP) Pulse Ox O2 Delivery O2 Flow Rate FiO2 08/26/17 08:00 97.9 77 20 117/81 (93) 100 Intake and Output 08/26/17 08/26/17 08/27/17 08:00 16:00 00:00 Intake Total 250 ml Output Total 1350 ml Balance -1100 ml Physical Examination General: Pt awake and alert in NAD. Eyes: Pupils 3mm bilaterally reactive bilaterally. Sclera anicteric. Resp: CTA bilaterally Heart: NSR no murmurs Abd: Soft positive bs Skin: Incision clean and dry without signs of infection. Muscle: Moves all 4 extremities with good strength. Neuro: Pt awake and alert. Follows commands well. Speech clear and appropriate. Follows commands well. Lab, Micro, Other Results Last Impressions Head CT 08/24/17 0600 Signed Impressions: CONCLUSION: 1. Interval improvement of the right ventricular dilatation and subfalcine her niation to the left. 2. 2. Old lacunar infarct within the right basal ganglia. 3. 3. No acute hemorrhage, acute infarct, mass effect or extra-axial bleed. Laboratory Tests Test 08/26/17 06:00 Creatinine 0.97 MG/DL Estimat Glomerular Filtration Rate 92 ML/MIN Vancomycin Level Trough 16.4 MCG/ML 08/26/17 08/26/17 08/27/17 15:00 23:00 07:00 Intake Total 250 ml Output Total 350 ml Balance -100 ml IV Total 250 ml Output Urine Total 350 ml Medical Decision Making Impression and Plan Impression: 1. Recent diagnosis of hydrocephalus, probable ventriculitis. Possible related to IV drug use. 2. Substance abuse 3. Possible hepatitis C-laboratory results pending at time of discharge from [facility] Plan: Continue IV cefepime, vancomycin, Flagyl pending further infectious disease evaluation and recommendations. Tiffany for seizure prophylaxis Nicotine patch Continue with Physical therapy X-ray left hand. Og Mcarthur Aug 26, 2017 11:16 am
[2017-08-26 12:00] VITALS: BP 119/79; PULSE 90; RESP 18; TEMP 97.9; O2SAT 98
--- NOTE | 2017-08-26 12:04 | RADRPT ---
EXAM DATE: 08/26/2017 11:58 AM EDT AGE/SEX: 31 years / Male INDICATIONS: Pain near 5th distal interphalangeal joint. CLINICAL DATA: This is the patient's initial encounter. Patient reports that signs and symptoms have been present for 1 month and indicates a pain score of 1/10. MEDICAL/SURGICAL HISTORY: None. . ventriculostomy. COMPARISON: No prior exams available for comparison. FINDINGS: 3 views of the left hand demonstrate an abnormal appearance at the fifth digit distal interphalangeal joint. There is abnormal joint space narrowing with osteophyte and there is a posterior fragment at the proximal aspect of the distal phalanx suggesting an old fracture. The osseous fragment appears we ll-corticated. There is mild soft tissue swelling. No erosions are present. The remaining visualized left hand structures demonstrate no acute finding. CONCLUSION: Abnormal appearance of the left fifth DIP joint and distal phalanx, as above. 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 Electronically signed by: Grayson Barger MD 08/26/2017 12:03 PM EDT
[2017-08-26 16:00] VITALS: BP 130/85; PULSE 84; RESP 18; TEMP 98; O2SAT 100
--- NOTE | 2017-08-26 16:05 | MB ---
cc: Ismael Iqbal MD DATE: 08/25/2017 REQUESTING PHYSICIAN: Maximus Reyes MD REASON FOR CONSULTATION: Possible ventriculitis. Continuing IV antibiotic recommendations per [facility]. HISTORY OF PRESENT ILLNESS: This is a 31-year-old white male who was transferred back to [facility] after he was sent to [facility] for ventriculostomy. The patient underwent terminal ventriculostomy at [facility] in [place]. The patient is an IV drug user. He developed headache along with blurred vision and nausea and eventually was found to have hydrocephalus. While at [facility], he was seen by infectious disease specialty and he was put on IV antibiotics in the form of vancomycin, cefepime, and Flagyl. Cultures were negative. The plan was to continue the antibiotics up until 08/31/2017. The patient is currently awake and alert. He has no complaints. He feels well. He mentioned that he had a slight numbness of his left arm when he woke up this morning, but it resolved. He thinks that he may have slept wrong on his right arm. The patient has no fever. His white blood cell count is normal. The patient is felt to possibly have had an endotoxin reaction to cotton which he used to filter the IV drugs that he was using. PAST MEDICAL HISTORY: 1. Hydrocephalus. 2. Hepatitis C. 3. Endoscopic terminal ventriculostomy in 08/2017.. ALLERGIES: NO KNOWN DRUG ALLERGIES. MEDICATIONS: 1. Vancomycin. 2. Cefepime. 3. Metronidazole. 4. Keppra. 5. Fioricet. 6. Nicotine patch. 7. [place] 5 p.r.n. SOCIAL HISTORY: Positive alcohol use. The patient smokes a pack of cigarettes a day. Positive marijuana. Positive cocaine. IV substance abuse. FAMILY HISTORY: Noncontributory. REVIEW OF SYSTEMS: Negative on a 10-point review. PHYSICAL EXAMINATION: GENERAL: Well-developed male who is in no acute distress. He is awake and alert and oriented. VITAL SIGNS: Includes temperature of 98 degrees, BP 123/97, respirations 18, heart rate 79. HEENT: Head is atraumatic. The incision at the frontal vertex aspect of the head is intact and sutures are in place. Extraocular movements grossly intact. Pupils reactive to light. No icterus. Oropharynx moist mucosa without lesions. NECK: Supple. No adenopathy. LUNGS: Clear breath sounds bilaterally. HEART: Regular rate and rhythm. No audible murmurs, rubs or gallops. ABDOMEN: Bowel sounds present, soft, nontender. RECTAL: Not performed. EXTREMITIES: The right upper extremity has a PICC line at the area above the elbow. There is no erythema or tenderness or swelling. The other extremities have no clubbing, cyanosis or edema. SKIN: No rash. NEUROLOGIC: No gross focal finding. Strength 5/5 in all extremities. PSYCHIATRIC: The patient is calm and pleasant and cooperative. LABORATORY FINDINGS: WBC 7.4, platelets 185, 51% neutrophils, 36% lymphocytes, 9% monocytes, hemoglobin 13.9. Creatinine 0.86, BUN 8, sodium 144. IMPRESSION: 1. Ventriculitis in the patient who developed headache following IV drug use. The patient is status post terminal ventriculostomy for hydrocephalus. Currently receiving broad spectrum antibiotics. Cultures were negative. The patient is currently very clinically stable. 2. Hepatitis C, recently diagnosed. RECOMMENDATIONS: 1. Continue the vancomycin intravenous, cefepime, and Flagyl to the end date specified previous of 09/04/2017. Monitor the patient for any deterioration in mental status. 2. Can consult gastroenterology to address the hepatitis C if necessary. I will follow the patient along with you and will make further recommendations if necessary. MD GELY Jain/JAMISON , 11:24 AM , 12:09 PM
[2017-08-26] MEDS: ACETAMIN 325 MG/BUTALBITAL 50 MG/CAFFEINE 40 MG TAB PO PRN (20:33)
[2017-08-26 20:40] VITALS: BP 130/86; PULSE 87; RESP 16; TEMP 98; O2SAT 100
[2017-08-27 00:45] VITALS: BP 125/85; PULSE 80; RESP 17; TEMP 98.6; O2SAT 100
[2017-08-27] MEDS: CEFEPIME INJ 2,000 MG in SODIUM CHLORIDE 0.9% INJ 100 ML IV SCH ×3 (04:28→20:21)
[2017-08-27] MEDS: metroNIDAZOLE 500 MG INJ 100 ML IV SCH ×3 (04:28→21:13)
[2017-08-27] MEDS: VANCOMYCIN INJ 1,250 MG in SODIUM CHLOR 0.9% 250 ML INJ 250 ML IV SCH ×3 (04:28→22:32)
[2017-08-27 06:00] VITALS: BP 126/77; PULSE 76; RESP 16; TEMP 98; O2SAT 100
[2017-08-27] MEDS: NICOTINE 14 MG/24 HR PATCH T-DERMAL SCH (07:16)
[2017-08-27] MEDS: levETIRAcetam 500 MG TAB PO SCH ×2 (07:16→20:21)
[2017-08-27] MEDS: REMOVE OLD PATCH T-DERMAL SCH (07:16)
[2017-08-27 08:00] VITALS: BP 122/71; PULSE 80; RESP 18; TEMP 98.4; O2SAT 97
[2017-08-27] MEDS: ACETAMIN 325 MG/BUTALBITAL 50 MG/CAFFEINE 40 MG TAB PO PRN (10:09)
[2017-08-27 12:00] VITALS: BP 119/79; PULSE 91; RESP 18; TEMP 98.4; O2SAT 96
--- NOTE | 2017-08-27 15:34 | HHI.NSPN ---
(Tutu Woodruff Facundo CHAMBERLAINP) History Chief Complaint: Occasional headache. (Tutu WoodruffKim JACKIE) Interval History 08/24: 31-year-old male with a history of substance abuse including IV drug abuse who was recently admitted to inpatient rehabilitation center in [place] for treatment. In the treatment center, he experienced progressive headaches and blurred vision with nausea and was discharged to [facility] in [place] on 08/16/2017 for evaluation. He was seen by neurosurgery. An MRI reported positive hydrocephalus. He was felt to be a candidate for an endoscopic terminal ventriculostomy procedure. Since the procedure was not readily available at the hospital, he was discharged to the care of his family on 08/18/2017. He presented to [facility] on the early evening of 08/18/2017 with persistent headache, blurred vision, lethargy, nausea and emesis. A follow-up scan showed persistent primarily right-sided ventriculomegaly without a definite obstructive lesion. He was transferred directly to [facility] for evaluation. He underwent an initial ventriculostomy placement, followed by surgery for endoscopic terminal ventriculostomy. He remained initially in the neurosurgical intensive care postoperatively. He was seen by infectious disease. Specific cause for the hydrocephalus was not determined. There was a question of ventriculitis related to Endo toxins secondary to the patient using cotton filter during IV drug use a few weeks prior to his admission. It was elected to place the patient on IV cefepime 6 g continuous infusion, vancomycin 1250 mg IV every 8 hours with vancomycin goal level 15-20, and Flagyl 500 mg IV every 8 hours with transitioning to oral Flagyl on discharge, all with stop date 09/04/2017. The patient was transferred back to [facility] on the evening of 08/23/2017. Discharge summary with recommendations received from [facility] today. 08/26/17: Pt awake and alert. Denies headaches. No nausea or vomiting. Pt states he has pain left 5th finger from jamming it and thinks he may have fractured it. 08/27: When seen this afternoon the patient is sitting up on the edge of the bed watching TV and visiting w/a friend. He did not have a headache or any dizziness when seen but did endorse an occasional headache. He denied any extremity pain, numbness or tingling. There were no sensorimotor deficits upon evaluation. (Tutu Woodruff) Exam Results 08/25/17 08/25/17 08/26/17 08/26/17 08/27/17 08/27/17 06:00 18:00 06:00 18:00 06:00 18:00 Intake Total 460 ml 710 ml 1800 ml 1420 ml 2400 ml 450 ml Output Total 1000 ml 350 ml 1100 ml Balance 460 ml 710 ml 800 ml 1070 ml 2400 ml -650 ml Intake Oral 1800 ml 720 ml 2400 ml IV Total 460 ml 710 ml 700 ml 450 ml Output Urine Total 1000 ml 350 ml 1100 ml # Voids 2 5 5 # Bowel Movements 3 0 Vital Signs Date Time Temp Pulse Resp B/P (MAP) Pulse Ox O2 Delivery O2 Flow Rate FiO2 08/27/17 08:00 98.4 80 18 122/71 (88) 97 08/27/17 06:00 98.0 76 16 126/77 (93) 100 08/27/17 00:45 98.6 80 17 125/85 (98) 100 08/26/17 20:40 98.0 87 16 130/86 (101) 100 08/26/17 16:00 98.0 84 18 130/85 (100) 100 08/26/17 12:00 97.9 90 18 119/79 (92) 98 08/26/17 08:00 97.9 77 20 117/81 (93) 100 08/26/17 04:40 97.3 78 17 107/60 (76) 97 08/26/17 00:15 97.9 65 16 128/88 (101) 98 08/25/17 20:50 97.9 87 16 137/90 (106) 97 08/25/17 16:00 98.0 68 18 134/67 (89) 98 08/25/17 12:00 98.0 93 18 114/67 (83) 98 08/25/17 08:00 98.0 79 18 123/97 (106) 99 08/25/17 04:44 97.6 67 18 115/77 (90) 100 08/25/17 00:24 98.6 84 20 130/81 (97) 99 08/24/17 19:52 98.5 84 20 136/76 (96) 100 08/24/17 16:12 98.3 83 20 129/82 (98) 99 (Tutu Woodruff) Physical Examination GENERAL: The patient is awake & alert, sitting on the edge of bed watching TV and visiting w/a friend. His affect is normal & he readily interacts. He is not in any apparent distress. HEENT: Normocephalic. Right frontal incision approximated, dry and intact, no erythema or streaking noted. PERRLA 3 mm brisk, EOMI. MMM & pink, tongue midline to protrusion. MUSCULOSKELETAL: PEREZ spontaneously & purposefully w/o difficulty. Extremities NTTP. No evident clubbing or deformity. NEUROLOGICAL: AAOx3. Speech clear & appropriate. Follows simple commands w/o difficulty. CN II through XII appear grossly intact. Sensation is intact to light touch to all extremities. Motor strength is 5/5 to all major flexion & extension muscle groups of the extremities, to include wrist flexors & extensors and hand intrinsics. (Tutu Woodruff) Lab, Micro, Other Results Recent Impressions Hand X-Ray 08/26/17 0000 Signed Impressions: CONCLUSION: Abnormal appearance of the left fifth DIP joint and distal phalanx, as above. T he appearance suggests an old fracture with secondary osteoarthritis. Laboratory Tests Test 08/26/17 06:00 Creatinine 0.97 MG/DL Estimat Glomerular Filtration Rate 92 ML/MIN Vancomycin Level Trough 16.4 MCG/ML (Tutu Woodruff) Medical Decision Making Impression and Plan Impression: 1. Recent diagnosis of hydrocephalus, probable ventriculitis. Possible related to IV drug use. 2. Substance abuse 3. Possible hepatitis C-laboratory results pending at time of discharge from [facility] Patient is doing well. Stable neuro exam. CT brain demonstrated improvement in the right ventricle dilation and subfalcine herniation to the left; old right basal ganglia lacunar infarct; no acute haemorrhage, infarct, mass effect or extra-axial bleed. Plan: Neuro checks q4h. Vital signs q4h. I&O q8h. Antibiotics per Infectious Disease. Consider Gastroenterology for haepatitis C. Levetiracetam for seizure prophylaxis. Mobilise patient w/assistance. Physical Therapy eval & tx. (Tutu Woodruff) Attending Statement The exam, history, and the medical decision-making described in the above note were completed with the assistance of the mid-level provider. I reviewed and agree with the findings presented. I attest that I had a [id number] encounter with the patient on the same day, and personally performed and documented my assessment and findings in the medical record. Remains awake and alert. Frontal incision healing well No focal deficit Continuing antibiotics (Maximus Reyes MD) Tutu Woodruff Aug 27, 2017 15:33 Maximus Reyes MD Aug 29, 2017 20:14
[2017-08-27 16:00] VITALS: BP 133/89; PULSE 86; RESP 20; TEMP 99; O2SAT 99
[2017-08-27 20:00] VITALS: BP 125/73; PULSE 90; RESP 18; TEMP 97.9; O2SAT 99
[2017-08-28] VITALS: BP 139/85; PULSE 90; RESP 18; TEMP 99.1; O2SAT 99
[2017-08-28 04:00] VITALS: BP 111/69; PULSE 82; RESP 18; TEMP 98.2; O2SAT 98
[2017-08-28] MEDS: CEFEPIME INJ 2,000 MG in SODIUM CHLORIDE 0.9% INJ 100 ML IV SCH ×3 (05:02→21:00)
[2017-08-28] MEDS: VANCOMYCIN INJ 1,250 MG in SODIUM CHLOR 0.9% 250 ML INJ 250 ML IV SCH (05:43)
[2017-08-28] MEDS ORDERED: PHARMACY ORDERED LAB ONE (05:45)
[2017-08-28] MEDS: metroNIDAZOLE 500 MG INJ 100 ML IV SCH ×3 (06:52→21:58)
[2017-08-28 07:16] LABS: CREATININE 0.93 MG/DL (0.60-1.30)
[2017-08-28 08:06] VITALS: BP 110/82; PULSE 73; RESP 20; TEMP 97.8; O2SAT 99
[2017-08-28] MEDS: NICOTINE 14 MG/24 HR PATCH T-DERMAL SCH (08:59)
[2017-08-28] MEDS: REMOVE OLD PATCH T-DERMAL SCH (08:59)
[2017-08-28] MEDS: levETIRAcetam 500 MG TAB PO SCH ×2 (09:00→21:00)
[2017-08-28 11:57] VITALS: BP 111/63; PULSE 99; RESP 20; TEMP 98; O2SAT 98
[2017-08-28] MEDS: VANCOMYCIN 1,500 MG/NS 500 ML IV SCH ×2 (16:04)
--- NOTE | 2017-08-28 16:28 | HHI.NSPN ---
(Tutu Woodruff Facundo CHAMBERLAINP) History Chief Complaint: Occasional headache. (Tutu WoodruffKim JACKIE) Interval History 08/24: 31-year-old male with a history of substance abuse including IV drug abuse who was recently admitted to inpatient rehabilitation center in [place] for treatment. In the treatment center, he experienced progressive headaches and blurred vision with nausea and was discharged to [facility] in [place] on 08/16/2017 for evaluation. He was seen by neurosurgery. An MRI reported positive hydrocephalus. He was felt to be a candidate for an endoscopic terminal ventriculostomy procedure. Since the procedure was not readily available at the hospital, he was discharged to the care of his family on 08/18/2017. He presented to [facility] on the early evening of 08/18/2017 with persistent headache, blurred vision, lethargy, nausea and emesis. A follow-up scan showed persistent primarily right-sided ventriculomegaly without a definite obstructive lesion. He was transferred directly to [facility] for evaluation. He underwent an initial ventriculostomy placement, followed by surgery for endoscopic terminal ventriculostomy. He remained initially in the neurosurgical intensive care postoperatively. He was seen by infectious disease. Specific cause for the hydrocephalus was not determined. There was a question of ventriculitis related to Endo toxins secondary to the patient using cotton filter during IV drug use a few weeks prior to his admission. It was elected to place the patient on IV cefepime 6 g continuous infusion, vancomycin 1250 mg IV every 8 hours with vancomycin goal level 15-20, and Flagyl 500 mg IV every 8 hours with transitioning to oral Flagyl on discharge, all with stop date 09/04/2017. The patient was transferred back to [facility] on the evening of 08/23/2017. Discharge summary with recommendations received from [facility] today. 08/26/17: Pt awake and alert. Denies headaches. No nausea or vomiting. Pt states he has pain left 5th finger from jamming it and thinks he may have fractured it. 08/27: When seen this afternoon the patient is sitting up on the edge of the bed watching TV and visiting w/a friend. He did not have a headache or any dizziness when seen but did endorse an occasional headache. He denied any extremity pain, numbness or tingling. There were no sensorimotor deficits upon evaluation. 08/28: This afternoon the patient is awake and alert in bed visiting with his girlfriend and watching TV. He does have a slight headache but denies any dizziness. He has no pain, numbness or tingling to the extremities. He has no sensorimotor deficits with evaluation. (Tutu Woodruff) Exam Results 08/26/17 08/26/17 08/27/17 08/27/17 08/28/17 08/28/17 06:00 18:00 06:00 18:00 06:00 18:00 Intake Total 1800 ml 1420 ml 2400 ml 700 ml 460 ml 355 ml Output Total 1000 ml 350 ml 1100 ml 1000 ml Balance 800 ml 1070 ml 2400 ml -400 ml -540 ml 355 ml Intake Oral 1800 ml 720 ml 2400 ml IV Total 700 ml 700 ml 460 ml 355 ml Output Urine Total 1000 ml 350 ml 1100 ml 1000 ml # Voids 2 5 5 5 # Bowel Movements 3 0 Vital Signs Date Time Temp Pulse Resp B/P (MAP) Pulse Ox O2 Delivery O2 Flow Rate FiO2 08/28/17 11:57 98.0 99 20 111/63 (79) 98 08/28/17 08:06 97.8 73 20 110/82 (91) 99 08/28/17 04:00 98.2 82 18 111/69 (83) 98 08/28/17 00:00 99.1 90 18 139/85 (103) 99 08/27/17 20:00 97.9 90 18 125/73 (90) 99 08/27/17 16:00 99.0 86 20 133/89 (104) 99 08/27/17 12:00 98.4 91 18 119/79 (92) 96 08/27/17 08:00 98.4 80 18 122/71 (88) 97 08/27/17 06:00 98.0 76 16 126/77 (93) 100 08/27/17 00:45 98.6 80 17 125/85 (98) 100 08/26/17 20:40 98.0 87 16 130/86 (101) 100 08/26/17 16:00 98.0 84 18 130/85 (100) 100 08/26/17 12:00 97.9 90 18 119/79 (92) 98 08/26/17 08:00 97.9 77 20 117/81 (93) 100 08/26/17 04:40 97.3 78 17 107/60 (76) 97 08/26/17 00:15 97.9 65 16 128/88 (101) 98 08/25/17 20:50 97.9 87 16 137/90 (106) 97 (Tutu Woodruff) Physical Examination GENERAL: The patient is awake & alert, laying in bed watching TV and visiting w/ his girlfriend. His affect is normal & he readily interacts. He is not in any apparent distress. HEENT: Normocephalic. Right frontal incision approximated, dry and intact, no erythema or streaking noted. PERRLA 3 mm brisk, EOMI. MMM & pink, tongue midline to protrusion. MUSCULOSKELETAL: PEREZ spontaneously & purposefully w/o difficulty. Extremities NTTP. No evident clubbing or deformity. NEUROLOGICAL: AAOx3. Speech clear & appropriate. Follows simple commands w/o difficulty. CN II through XII appear grossly intact. Sensation is intact to light touch to all extremities. Motor strength is 5/5 to all major flexion & extension muscle groups of the extremities. (Tutu Woodruff) Lab, Micro, Other Results Recent Impressions Hand X-Ray 08/26/17 0000 Signed Impressions: CONCLUSION: Abnormal appearance of the left fifth DIP joint and distal phalanx, as above. T he appearance suggests an old fracture with secondary osteoarthritis. Laboratory Tests Test 08/26/17 06:00 08/28/17 05:45 Creatinine 0.97 MG/DL 0.93 MG/DL Estimat Glomerular Filtration Rate 92 ML/MIN 96 ML/MIN Vancomycin Level Trough 16.4 MCG/ML 12.9 MCG/ML (Tutu Woodruff) Medical Decision Making Impression and Plan Impression: 1. Recent diagnosis of hydrocephalus, probable ventriculitis. Possible related to IV drug use. 2. Substance abuse 3. Possible hepatitis C-laboratory results pending at time of discharge from [facility] Patient continues to do well. His neuro exam remains stable. Past 24 hrs: Afebrile. Reviewed labs for today. CT brain demonstrated improvement in the right ventricle dilation and subfalcine herniation to the left; old right basal ganglia lacunar infarct; no acute haemorrhage, infarct, mass effect or extra-axial bleed. Plan: Neuro checks q4h. Vital signs q4h. I&O q8h. Antibiotics per Infectious Disease. Levetiracetam for seizure prophylaxis. Mobilise patient w/assistance. Physical Therapy eval & tx. (Tutu Woodruff) Attending Statement The exam, history, and the medical decision-making described in the above note were completed with the assistance of the mid-level provider. I reviewed and agree with the findings presented. I attest that I had a [id number] encounter with the patient on the same day, and personally performed and documented my assessment and findings in the medical record. No complaint of headache, dizziness, visual symptoms Frontal incision healing well No focal deficit Continuing antibiotics (Maximus Reyes MD) Tutu Woodruff Aug 28, 2017 16:28 Maximus Reyes MD Aug 29, 2017 20:14
[2017-08-28 17:08] VITALS: BP 124/85; PULSE 91; RESP 20; TEMP 98.4; O2SAT 99
[2017-08-28 20:00] VITALS: BP 148/75; PULSE 96; RESP 18; TEMP 98.8; O2SAT 90
[2017-08-29] VITALS: BP 145/70; PULSE 90; RESP 18; TEMP 98.7; O2SAT 100
[2017-08-29] MEDS: VANCOMYCIN 1,500 MG/NS 500 ML IV SCH ×6 (00:07→16:00)
[2017-08-29 04:00] VITALS: BP 127/80; PULSE 76; RESP 18; TEMP 97.7; O2SAT 98
[2017-08-29] MEDS: CEFEPIME INJ 2,000 MG in SODIUM CHLORIDE 0.9% INJ 100 ML IV SCH ×3 (04:02→20:27)
[2017-08-29] MEDS: metroNIDAZOLE 500 MG INJ 100 ML IV SCH ×3 (06:13→21:16)
[2017-08-29 08:31] VITALS: BP 121/75; PULSE 93; RESP 20; TEMP 98.5; O2SAT 97
[2017-08-29] MEDS: REMOVE OLD PATCH T-DERMAL SCH (09:00)
[2017-08-29] MEDS: levETIRAcetam 500 MG TAB PO SCH ×2 (10:26→20:27)
[2017-08-29] MEDS: NICOTINE 14 MG/24 HR PATCH T-DERMAL SCH (10:26)
[2017-08-29 12:28] VITALS: BP 125/69; PULSE 91; RESP 20; TEMP 97.4; O2SAT 97
[2017-08-29] MEDS ORDERED: PHARMACY ORDERED LAB ONE ×2 (15:45→23:45)
[2017-08-29 16:36] VITALS: BP 123/73; PULSE 92; RESP 20; TEMP 98.6; O2SAT 97
[2017-08-29 20:00] VITALS: BP 143/84; PULSE 88; RESP 18; TEMP 98.7; O2SAT 98
--- NOTE | 2017-08-29 20:16 | HHI.NSPN ---
History Chief Complaint: Occasional headache. Interval History No new complaints. No headache Tolerating diet No nausea vomiting Exam Results Vital Signs Date Time Temp Pulse Resp B/P (MAP) Pulse Ox O2 Delivery O2 Flow Rate FiO2 08/29/17 16:36 98.6 92 20 123/73 (90) 97 Intake and Output 08/29/17 08/29/17 08/30/17 08:00 16:00 00:00 Intake Total 720 ml Balance 720 ml Physical Examination GENERAL: The patient is awake & alert, laying in bed watching TV His affect is normal & he readily interacts. He is not in any apparent distress. HEENT: Normocephalic. Right frontal incision approximated, dry and intact, no erythema or streaking noted. PERRLA 3 mm brisk, EOMI. MMM & pink, tongue midline to protrusion. MUSCULOSKELETAL: PEREZ spontaneously & purposefully w/o difficulty. Extremities NTTP. No evident clubbing or deformity. NEUROLOGICAL: AAOx3. Speech clear & appropriate. Follows simple commands w/o difficulty. CN II through XII appear grossly intact. Sensation is intact to light touch to all extremities. Motor strength is 5/5 to all major flexion & extension muscle groups of the extremities. Lab, Micro, Other Results Laboratory Tests Test 08/29/17 12:40 Vancomycin Level Trough 25.9 MCG/ML Medical Decision Making Impression and Plan Impression: 1. Stable neurologic status following endoscopic third ventricular fenestration. Possible ventriculitis. Plan: Findings were discussed with the patient Continuing IV antibiotics Maximus Reyes MD Aug 29, 2017 20:16
[2017-08-30] VITALS: BP 145/80; PULSE 90; RESP 18; TEMP 98.3; O2SAT 98
[2017-08-30] MEDS: VANCOMYCIN 1,500 MG/NS 500 ML IV SCH ×8 (00:40→22:57)
[2017-08-30] MEDS: CEFEPIME INJ 2,000 MG in SODIUM CHLORIDE 0.9% INJ 100 ML IV SCH ×3 (03:54→22:57)
[2017-08-30 04:00] VITALS: BP 119/58; PULSE 75; RESP 18; TEMP 98.2; O2SAT 98
[2017-08-30] MEDS: metroNIDAZOLE 500 MG INJ 100 ML IV SCH ×3 (04:57→22:57)
[2017-08-30 07:11] LABS: CREATININE 0.84 MG/DL (0.60-1.30)
[2017-08-30 08:00] VITALS: BP 129/73; PULSE 53; RESP 18; TEMP 98.6; O2SAT 92
[2017-08-30] MEDS: REMOVE OLD PATCH T-DERMAL SCH (09:00)
[2017-08-30] MEDS: levETIRAcetam 500 MG TAB PO SCH ×2 (09:55→22:56)
[2017-08-30] MEDS: NICOTINE 14 MG/24 HR PATCH T-DERMAL SCH (09:57)
[2017-08-30] MEDS: ACETAMIN 325 MG/BUTALBITAL 50 MG/CAFFEINE 40 MG TAB PO PRN ×2 (11:43→17:38)
[2017-08-30 11:47] VITALS: BP 138/83; PULSE 94; RESP 18; TEMP 97.9; O2SAT 99
[2017-08-30 15:58] VITALS: BP 132/86; PULSE 89; RESP 18; TEMP 98.6; O2SAT 99
--- NOTE | 2017-08-30 17:51 | HHI.NSPN ---
(Tutu WoodruffKim JACKIE) History Chief Complaint: Headache today. (Tutu Woodruff) Interval History 08/24: 31-year-old male with a history of substance abuse including IV drug abuse who was recently admitted to inpatient rehabilitation center in [place] for treatment. In the treatment center, he experienced progressive headaches and blurred vision with nausea and was discharged to [facility] in [place] on 08/16/2017 for evaluation. He was seen by neurosurgery. An MRI reported positive hydrocephalus. He was felt to be a candidate for an endoscopic terminal ventriculostomy procedure. Since the procedure was not readily available at the hospital, he was discharged to the care of his family on 08/18/2017. He presented to [facility] on the early evening of 08/18/2017 with persistent headache, blurred vision, lethargy, nausea and emesis. A follow-up scan showed persistent primarily right-sided ventriculomegaly without a definite obstructive lesion. He was transferred directly to [facility] for evaluation. He underwent an initial ventriculostomy placement, followed by surgery for endoscopic terminal ventriculostomy. He remained initially in the neurosurgical intensive care postoperatively. He was seen by infectious disease. Specific cause for the hydrocephalus was not determined. There was a question of ventriculitis related to Endo toxins secondary to the patient using cotton filter during IV drug use a few weeks prior to his admission. It was elected to place the patient on IV cefepime 6 g continuous infusion, vancomycin 1250 mg IV every 8 hours with vancomycin goal level 15-20, and Flagyl 500 mg IV every 8 hours with transitioning to oral Flagyl on discharge, all with stop date 09/04/2017. The patient was transferred back to [facility] on the evening of 08/23/2017. Discharge summary with recommendations received from [facility] today. 08/26/17: Pt awake and alert. Denies headaches. No nausea or vomiting. Pt states he has pain left 5th finger from jamming it and thinks he may have fractured it. 08/27: When seen this afternoon the patient is sitting up on the edge of the bed watching TV and visiting w/a friend. He did not have a headache or any dizziness when seen but did endorse an occasional headache. He denied any extremity pain, numbness or tingling. There were no sensorimotor deficits upon evaluation. 08/28: This afternoon the patient is awake and alert in bed visiting with his girlfriend and watching TV. He does have a slight headache but denies any dizziness. He has no pain, numbness or tingling to the extremities. He has no sensorimotor deficits with evaluation. 08/29: No new complaints. No headache Tolerating diet No nausea vomiting 08/30: The patient is sitting up in the bed visiting with his girlfriend watching TV. He does say he has had a headache throughout the day but it is better than his headaches before surgery. He denies any dizziness, nausea or vomiting. He has no pain, numbness or tingling to the extremities. He has no sensorimotor deficits upon evaluation. (Tutu Woodruff) Exam Results 08/28/17 08/28/17 08/29/17 08/29/17 08/30/17 08/30/17 06:00 18:00 06:00 18:00 06:00 18:00 Intake Total 460 ml 355 ml 720 ml Output Total 1000 ml 600 ml Balance -540 ml 355 ml -600 ml 720 ml Intake Oral 720 ml IV Total 460 ml 355 ml Output Urine Total 1000 ml 600 ml # Voids 5 3 4 # Bowel Movements 0 Vital Signs Date Time Temp Pulse Resp B/P (MAP) Pulse Ox O2 Delivery O2 Flow Rate FiO2 08/30/17 15:58 98.6 89 18 132/86 (101) 99 08/30/17 11:47 97.9 94 18 138/83 (101) 99 08/30/17 08:00 98.6 53 18 129/73 (91) 92 08/30/17 04:00 98.2 75 18 119/58 (78) 98 08/30/17 00:00 98.3 90 18 145/80 (101) 98 08/29/17 20:00 98.7 88 18 143/84 (103) 98 08/29/17 16:36 98.6 92 20 123/73 (90) 97 08/29/17 12:28 97.4 91 20 125/69 (87) 97 08/29/17 08:31 98.5 93 20 121/75 (90) 97 08/29/17 04:00 97.7 76 18 127/80 (96) 98 08/29/17 00:00 98.7 90 18 145/70 (95) 100 08/28/17 20:00 98.8 96 18 148/75 (99) 90 08/28/17 17:08 98.4 91 20 124/85 (98) 99 08/28/17 11:57 98.0 99 20 111/63 (79) 98 08/28/17 08:06 97.8 73 20 110/82 (91) 99 08/28/17 04:00 98.2 82 18 111/69 (83) 98 08/28/17 00:00 99.1 90 18 139/85 (103) 99 08/27/17 20:00 97.9 90 18 125/73 (90) 99 (Tutu Woodruff) Physical Examination GENERAL: The patient is awake & alert, sitting up in bed watching TV and visiting w/his girlfriend. His affect is normal & he readily interacts. He is not in any apparent distress. HEENT: Normocephalic. Right frontal incision approximated, dry and intact, no erythema or streaking noted. MUSCULOSKELETAL: PEREZ spontaneously & purposefully w/o difficulty. Extremities NTTP. No evident clubbing or deformity. NEUROLOGICAL: AAOx3. Speech clear & appropriate. Follows simple commands w/o difficulty. Sensation is intact to light touch to all extremities. Motor strength is 5/5 to all major flexion & extension muscle groups of the extremities. (Tutu Woodruff) Lab, Micro, Other Results Laboratory Tests Test 08/28/17 05:45 08/29/17 12:40 08/29/17 23:40 08/30/17 06:00 Creatinine 0.93 MG/DL 0.84 MG/DL Estimat Glomerular Filtration Rate 96 ML/MIN 108 ML/MIN Vancomycin Level Trough 12.9 MCG/ML 25.9 MCG/ML 18.1 MCG/ML (Tutu Woodruff) Medical Decision Making Impression and Plan Impression: 1. Recent diagnosis of hydrocephalus, probable ventriculitis. Possible related to IV drug use. 2. Substance abuse 3. Possible hepatitis C-laboratory results pending at time of discharge from [facility] Patient doing fairly well. Has headache throughout the day but better than before surgery. His neuro exam remains stable. Past 24 hrs: Afebrile. Reviewed labs for today. CT brain demonstrated improvement in the right ventricle dilation and subfalcine herniation to the left; old right basal ganglia lacunar infarct; no acute haemorrhage, infarct, mass effect or extra-axial bleed. Plan: Neuro checks q4h. Vital signs q4h. I&O q8h. Antibiotics per Infectious Disease. Levetiracetam for seizure prophylaxis. Mobilise patient w/assistance. Physical Therapy eval & tx. (Tutu Woodruff) Attending Statement The exam, history, and the medical decision-making described in the above note were completed with the assistance of the mid-level provider. I reviewed and agree with the findings presented. I attest that I had a [id number] encounter with the patient on the same day, and personally performed and documented my assessment and findings in the medical record. (Maximus Reyes MD) Tutu Woodruff Aug 30, 2017 17:51 Maximus Reyes MD Sep 04, 2017 00:18
--- NOTE | 2017-08-30 19:45 | RADRPT ---
EXAM DATE: 08/30/2017 7:38 PM EDT AGE/SEX: 31 years / Male INDICATIONS: Post op ventriculostomy CLINICAL DATA: This is the patient's initial encounter. Patient reports that signs and symptoms have been present for 1 day and indicates a pain score of 4/10. MEDICAL/SURGICAL HISTORY: . Hydrocephalus . Ventriculostomy. RADIATION DOSE: 51.08 CTDI (mGy) COMPARISON: CT brain 08/24/2017 . TECHNIQUE: CT of the head without contrast. Using automated exposure control and adjustment of the mA and/or kV according to patient size, radiation dose was kept as low as reasonably achievable to ob tain optimal diagnostic quality images. DICOM format image data is available electronically for revi ew and comparison. FINDINGS: Cerebrum: [place] hole involving the right frontal bone with linear tract of encephalomalacia suggestin g prior ventriculostomy. No ventriculostomy currently seen. The right lateral ventricle is larger fro m the prior exam. The remaining ventricles are normal in size and stable. Cavum septa pellucida noted . No evidence of midline shift, mass lesion, hemorrhage or acute infarction. No extraaxial fluid col lections are seen. Posterior Fossa: The cerebellum and brainstem are intact. The 4th ventricle is midline. The cerebe llopontine angle is unremarkable. Extracranial: The visualized portion of the orbits is intact. Skull: The calvaria is intact. No evidence of skull fracture. CONCLUSION: 1. Enlargement of the right lateral ventricle in the short interval from the prior study. 2. Encephalomalacia and morris hole suggesting prior right-sided ventriculostomy. This is no longer pr esent. Electronically signed by: Felix Johnsno MD 08/30/2017 7:43 PM EDT
[2017-08-30 20:00] VITALS: BP 125/63; PULSE 94; RESP 18; TEMP 98.9; O2SAT 97
[2017-08-30] MEDS: ACETAMINOPHEN/HYDROcodone 325 MG/5 MG TAB PO PRN (22:56)
[2017-08-31] VITALS: BP 136/86; PULSE 88; RESP 18; TEMP 98.8; O2SAT 96
[2017-08-31 04:00] VITALS: BP 119/78; PULSE 86; RESP 18; TEMP 98.8; O2SAT 95
[2017-08-31] MEDS: metroNIDAZOLE 500 MG INJ 100 ML IV SCH ×3 (04:41→13:33)
[2017-08-31] MEDS: CEFEPIME INJ 2,000 MG in SODIUM CHLORIDE 0.9% INJ 100 ML IV SCH ×3 (04:41→19:46)
[2017-08-31] MEDS: ACETAMIN 325 MG/BUTALBITAL 50 MG/CAFFEINE 40 MG TAB PO PRN ×2 (06:32→11:46)
[2017-08-31 08:00] VITALS: BP 133/75; PULSE 104; RESP 18; TEMP 98.2; O2SAT 97
[2017-08-31] MEDS: levETIRAcetam 500 MG TAB PO SCH ×2 (08:45→19:46)
[2017-08-31] MEDS: NICOTINE 14 MG/24 HR PATCH T-DERMAL SCH (08:45)
[2017-08-31] MEDS: VANCOMYCIN 1,500 MG/NS 500 ML IV SCH ×4 (08:47→16:12)
[2017-08-31] MEDS: REMOVE OLD PATCH T-DERMAL SCH (09:00)
[2017-08-31 12:00] VITALS: BP 129/80; PULSE 96; RESP 16; TEMP 97.9; O2SAT 97
--- NOTE | 2017-08-31 14:56 | HHI.NSPN ---
(Irasema Germain) Note Status Status: Progress Note (Irasema Germain) Interval History Interval History 08/24: 31-year-old male with a history of substance abuse including IV drug abuse who was recently admitted to inpatient rehabilitation center in [place] for treatment. In the treatment center, he experienced progressive headaches and blurred vision with nausea and was discharged to [facility] in [place] on 08/16/2017 for evaluation. He was seen by neurosurgery. An MRI reported positive hydrocephalus. He was felt to be a candidate for an endoscopic terminal ventriculostomy procedure. Since the procedure was not readily available at the hospital, he was discharged to the care of his family on 08/18/2017. He presented to [facility] on the early evening of 08/18/2017 with persistent headache, blurred vision, lethargy, nausea and emesis. A follow-up scan showed persistent primarily right-sided ventriculomegaly without a definite obstructive lesion. He was transferred directly to [facility] for evaluation. He underwent an initial ventriculostomy placement, followed by surgery for endoscopic terminal ventriculostomy. He remained initially in the neurosurgical intensive care postoperatively. He was seen by infectious disease. Specific cause for the hydrocephalus was not determined. There was a question of ventriculitis related to Endo toxins secondary to the patient using cotton filter during IV drug use a few weeks prior to his admission. It was elected to place the patient on IV cefepime 6 g continuous infusion, vancomycin 1250 mg IV every 8 hours with vancomycin goal level 15-20, and Flagyl 500 mg IV every 8 hours with transitioning to oral Flagyl on discharge, all with stop date 09/04/2017. The patient was transferred back to [facility] on the evening of 08/23/2017. Discharge summary with recommendations received from [facility] today. 08/26/17: Pt awake and alert. Denies headaches. No nausea or vomiting. Pt states he has pain left 5th finger from jamming it and thinks he may have fractured it. 08/27: When seen this afternoon the patient is sitting up on the edge of the bed watching TV and visiting w/a friend. He did not have a headache or any dizziness when seen but did endorse an occasional headache. He denied any extremity pain, numbness or tingling. There were no sensorimotor deficits upon evaluation. 08/28: This afternoon the patient is awake and alert in bed visiting with his girlfriend and watching TV. He does have a slight headache but denies any dizziness. He has no pain, numbness or tingling to the extremities. He has no sensorimotor deficits with evaluation. 08/29: No new complaints. No headache Tolerating diet No nausea vomiting 08/30: The patient is sitting up in the bed visiting with his girlfriend watching TV. He does say he has had a headache throughout the day but it is better than his headaches before surgery. He denies any dizziness, nausea or vomiting. He has no pain, numbness or tingling to the extremities. He has no sensorimotor deficits upon evaluation. 08/31: Still complains of headaches, a repeat CT brain was obtained yesterday which just showed slight enlargement of the right ventricle. Appears comfortable, appears in no apparent distress. (Irasema Germain) Labs, Micro, & Vital Signs Results Date Time Temp Pulse Resp B/P (MAP) Pulse Ox O2 Delivery O2 Flow Rate FiO2 08/31/17 12:00 97.9 96 16 129/80 (96) 97 08/31/17 08:00 98.2 104 18 133/75 (94) 97 08/31/17 04:00 98.8 86 18 119/78 (92) 95 08/31/17 00:00 98.8 88 18 136/86 (103) 96 08/30/17 20:00 98.9 94 18 125/63 (83) 97 08/30/17 15:58 98.6 89 18 132/86 (101) 99 Constitutional Vital Signs Date Time Temp Pulse Resp B/P (MAP) Pulse Ox O2 Delivery O2 Flow Rate FiO2 08/31/17 12:00 97.9 96 16 129/80 (96) 97 08/31/17 08:00 98.2 104 18 133/75 (94) 97 08/31/17 04:00 98.8 86 18 119/78 (92) 95 08/31/17 00:00 98.8 88 18 136/86 (103) 96 08/30/17 20:00 98.9 94 18 125/63 (83) 97 08/30/17 15:58 98.6 89 18 132/86 (101) 99 (Irasema Germain) Review of Systems Constitutional: DENIES: Fever, Chills Cardiovascular: DENIES: Chest pain Gastrointestinal: DENIES: Abdominal pain Neurologic: COMPLAINS OF: Headache, DENIES: Seizures (Irasema Germain) Physical Exam Mr. Hernandez is alert, awake. Speech is fluent, conversing well. Appears comfortable sitting on edge of bed crossed legged. Scalp wound healing well, no evidence of infection. Cranial nerve examination: pupils to be equal, round and reactive to light. Extra-ocular movements are intact. Facial motor are normal and symmetrical. Motor: moving extremities with good strength Neck: soft, supple (Irasema Germain) Medications Current Medications Current Medications Medications (Trade) Dose Ordered Sig/Madeleine Route PRN Reason Start Time Stop Time Status Last Admin Dose Admin Acetaminophen/ Hydrocodone Bitart (Grandy 5-325 Mg) 1 tab Q4H PRN PO PAIN SCALE 3 TO 5 08/23/17 19:45 08/30/17 22:56 Naloxone HCl (Narcan Inj) 0.4 mg UNSCH PRN IV PUSH SEE LABEL COMMENTS 08/23/17 19:45 Levetriacetam (Keppra) 500 mg BID PO 08/24/17 09:00 08/31/17 08:45 Acetaminophen/ Butalbital/ Caffeine (Fioricet 325-50-40) 1 tab Q6H PRN PO HEADACHE 08/23/17 23:30 08/31/17 11:46 Nicotine (Habitrol 14 Mg Patch.24 Hr) 1 patch DAILY T-DERMAL 08/23/17 23:30 08/31/17 08:45 Miscellaneous Information 1 DAILY T-DERMAL 08/24/17 09:00 08/29/17 09:00 Metronidazole 100 ml @ 100 mls/hr Q8HR IV 08/24/17 22:00 08/31/17 13:33 Cefepime HCl 2000 mg/Sodium Chloride 100 ml @ 200 mls/hr Q8H IV 08/24/17 20:00 08/31/17 11:31 Pharmacy Profile Note 0 ml @ 0 mls/hr UNSCH PRN OTHER ADJUST FOR CREATININE CLRNCE 08/25/17 11:30 Vancomycin HCl 1500 mg/Sodium Chloride 515 ml @ 257.5 mls/ hr Q8H IV 08/28/17 16:00 08/31/17 08:47 Miscellaneous Information ([facility] Ordered Lab Info) SPECIFIC LAB TO BE AP... ONCE ONCE .XX 09/02/17 07:45 09/02/17 07:46 (Irasema Germain) Medical Decision Making MDM Remarks 31-year-old male with hydrocephalus, status post endoscopic third ventriculostomy at [facility], Headaches slowly coming back (Irasema Germain) Plan Plan Remarks continue neuro checks, Follow-up examination dw with mother that if patient does not improve may require ventriculostomy drain vs permanent shunt placement, (Irasema Germain) Attending Statement The exam, history, and the medical decision-making described in the above note were completed with the assistance of the mid-level provider. I reviewed and agree with the findings presented. I attest that I had a [id number] encounter with the patient on the same day, and personally performed and documented my assessment and findings in the medical record. (Wing Awan MD) Irasema Germain Aug 31, 2017 14:56 Wing Awan MD Sep 01, 2017 19:35
[2017-08-31 17:25] VITALS: BP 121/82; PULSE 89; RESP 18; TEMP 99; O2SAT 98
[2017-08-31] MEDS: ACETAMINOPHEN/HYDROcodone 325 MG/5 MG TAB PO PRN (19:47)
[2017-08-31 20:02] VITALS: BP 119/58; PULSE 81; RESP 18; TEMP 98.2; O2SAT 97
[2017-09-01] VITALS: BP 112/62; PULSE 73; RESP 18; TEMP 98.7; O2SAT 98
[2017-09-01] MEDS: VANCOMYCIN 1,500 MG/NS 500 ML IV SCH ×8 (00:16→23:28)
[2017-09-01 04:00] VITALS: BP 95/54; PULSE 89; RESP 18; TEMP 98.2; O2SAT 96
[2017-09-01] MEDS: CEFEPIME INJ 2,000 MG in SODIUM CHLORIDE 0.9% INJ 100 ML IV SCH ×3 (05:27→21:25)
[2017-09-01] MEDS: metroNIDAZOLE 500 MG INJ 100 ML IV SCH ×3 (05:28→22:07)
[2017-09-01 08:16] VITALS: BP 107/73; PULSE 80; RESP 16; TEMP 98.4; O2SAT 97
[2017-09-01] MEDS: NICOTINE 14 MG/24 HR PATCH T-DERMAL SCH (08:32)
[2017-09-01] MEDS: levETIRAcetam 500 MG TAB PO SCH ×2 (08:33→21:25)
[2017-09-01] MEDS: REMOVE OLD PATCH T-DERMAL SCH (08:33)
[2017-09-01] MEDS: ACETAMIN 325 MG/BUTALBITAL 50 MG/CAFFEINE 40 MG TAB PO PRN ×2 (08:33→15:38)
--- NOTE | 2017-09-01 11:34 | HHI.NSPN ---
(Irasema Germain) Note Status Status: Progress Note (Irasema Germain) Interval History Interval History 08/24: 31-year-old male with a history of substance abuse including IV drug abuse who was recently admitted to inpatient rehabilitation center in [place] for treatment. In the treatment center, he experienced progressive headaches and blurred vision with nausea and was discharged to [facility] in [place] on 08/16/2017 for evaluation. He was seen by neurosurgery. An MRI reported positive hydrocephalus. He was felt to be a candidate for an endoscopic terminal ventriculostomy procedure. Since the procedure was not readily available at the hospital, he was discharged to the care of his family on 08/18/2017. He presented to [facility] on the early evening of 08/18/2017 with persistent headache, blurred vision, lethargy, nausea and emesis. A follow-up scan showed persistent primarily right-sided ventriculomegaly without a definite obstructive lesion. He was transferred directly to [facility] for evaluation. He underwent an initial ventriculostomy placement, followed by surgery for endoscopic terminal ventriculostomy. He remained initially in the neurosurgical intensive care postoperatively. He was seen by infectious disease. Specific cause for the hydrocephalus was not determined. There was a question of ventriculitis related to Endo toxins secondary to the patient using cotton filter during IV drug use a few weeks prior to his admission. It was elected to place the patient on IV cefepime 6 g continuous infusion, vancomycin 1250 mg IV every 8 hours with vancomycin goal level 15-20, and Flagyl 500 mg IV every 8 hours with transitioning to oral Flagyl on discharge, all with stop date 09/04/2017. The patient was transferred back to [facility] on the evening of 08/23/2017. Discharge summary with recommendations received from [facility] today. 08/26/17: Pt awake and alert. Denies headaches. No nausea or vomiting. Pt states he has pain left 5th finger from jamming it and thinks he may have fractured it. 08/27: When seen this afternoon the patient is sitting up on the edge of the bed watching TV and visiting w/a friend. He did not have a headache or any dizziness when seen but did endorse an occasional headache. He denied any extremity pain, numbness or tingling. There were no sensorimotor deficits upon evaluation. 08/28: This afternoon the patient is awake and alert in bed visiting with his girlfriend and watching TV. He does have a slight headache but denies any dizziness. He has no pain, numbness or tingling to the extremities. He has no sensorimotor deficits with evaluation. 08/29: No new complaints. No headache Tolerating diet No nausea vomiting 08/30: The patient is sitting up in the bed visiting with his girlfriend watching TV. He does say he has had a headache throughout the day but it is better than his headaches before surgery. He denies any dizziness, nausea or vomiting. He has no pain, numbness or tingling to the extremities. He has no sensorimotor deficits upon evaluation. 08/31: Still complains of headaches, a repeat CT brain was obtained yesterday which just showed slight enlargement of the right ventricle. Appears comfortable, appears in no apparent distress. 09/01: reports headaches much better today, no new neuro complaints. (Irasema Germain) Labs, Micro, & Vital Signs Results Date Time Temp Pulse Resp B/P (MAP) Pulse Ox O2 Delivery O2 Flow Rate FiO2 09/01/17 08:16 98.4 80 16 107/73 (84) 97 09/01/17 04:00 98.2 89 18 95/54 (68) 96 09/01/17 04:00 98.2 89 18 95/54 (68) 96 09/01/17 00:00 98.7 73 18 112/62 (79) 98 08/31/17 20:02 98.2 81 18 119/58 (78) 97 08/31/17 17:25 99.0 89 18 121/82 (95) 98 08/31/17 12:00 97.9 96 16 129/80 (96) 97 09/02/17 07:00 Intake Total 500 ml Balance 500 ml Constitutional Vital Signs Date Time Temp Pulse Resp B/P (MAP) Pulse Ox O2 Delivery O2 Flow Rate FiO2 09/01/17 08:16 98.4 80 16 107/73 (84) 97 09/01/17 04:00 98.2 89 18 95/54 (68) 96 09/01/17 04:00 98.2 89 18 95/54 (68) 96 09/01/17 00:00 98.7 73 18 112/62 (79) 98 08/31/17 20:02 98.2 81 18 119/58 (78) 97 08/31/17 17:25 99.0 89 18 121/82 (95) 98 08/31/17 12:00 97.9 96 16 129/80 (96) 97 09/02/17 07:00 Intake Total 500 ml Balance 500 ml (Irasema Germain) Review of Systems Constitutional: DENIES: Fever Gastrointestinal: DENIES: Vomiting Neurologic: COMPLAINS OF: Headache (better), DENIES: Localized weakness, Seizures (Irasema Germain) Physical Exam Mr. Hernandez is alert, awake. Speech is fluent, conversing well. Appears comfortable in bed using his cell phone. Scalp wound healing well, no evidence of infection. Cranial nerve examination: pupils to be equal, round and reactive to light. Extra-ocular movements are intact. Facial motor are normal and symmetrical. Motor: moving extremities with good strength (Irasema Germain) Medications Current Medications Current Medications Medications (Trade) Dose Ordered Sig/Madeleine Route PRN Reason Start Time Stop Time Status Last Admin Dose Admin Acetaminophen/ Hydrocodone Bitart ([place] 5-325 Mg) 1 tab Q4H PRN PO PAIN SCALE 3 TO 5 08/23/17 19:45 08/31/17 19:47 Naloxone HCl (Narcan Inj) 0.4 mg UNSCH PRN IV PUSH SEE LABEL COMMENTS 08/23/17 19:45 Levetriacetam (Keppra) 500 mg BID PO 08/24/17 09:00 09/01/17 08:33 Acetaminophen/ Butalbital/ Caffeine (Fioricet 325-50-40) 1 tab Q6H PRN PO HEADACHE 08/23/17 23:30 09/01/17 08:33 Nicotine (Habitrol 14 Mg Patch.24 Hr) 1 patch DAILY T-DERMAL 08/23/17 23:30 08/31/17 08:45 Miscellaneous Information 1 DAILY T-DERMAL 08/24/17 09:00 08/29/17 09:00 Metronidazole 100 ml @ 100 mls/hr Q8HR IV 6/15/18 22:00 09/01/17 05:28 Cefepime HCl 2000 mg/Sodium Chloride 100 ml @ 200 mls/hr Q8H IV 08/24/17 20:00 09/01/17 11:00 Pharmacy Profile Note 0 ml @ 0 mls/hr UNSCH PRN OTHER ADJUST FOR CREATININE CLRNCE 08/25/17 11:30 Vancomycin HCl 1500 mg/Sodium Chloride 515 ml @ 257.5 mls/ hr Q8H IV 08/28/17 16:00 09/01/17 08:32 Miscellaneous Information ([facility] Ordered Lab Info) SPECIFIC LAB TO BE AP... ONCE ONCE .XX 09/02/17 07:45 09/02/17 07:46 (Irasema Germain) Medical Decision Making MDM Remarks 31-year-old male with hydrocephalus, status post endoscopic third ventriculostomy at [facility], stable, headaches better today 09/01 (Irasema Germain) Plan Plan Remarks continue neuro checks, Follow-up examination cont current care cont abx tx per ID (Irasema Germain) Attending Statement The exam, history, and the medical decision-making described in the above note were completed with the assistance of the mid-level provider. I reviewed and agree with the findings presented. I attest that I had a [id number] encounter with the patient on the same day, and personally performed and documented my assessment and findings in the medical record. (Wing Awan MD) Irasema Germain Sep 01, 2017 11:34 Wing Awan MD Sep 01, 2017 19:37
[2017-09-01 12:00] VITALS: BP 131/74; PULSE 86; RESP 17; TEMP 97.9; O2SAT 96
[2017-09-01 16:00] VITALS: BP 119/71; PULSE 88; RESP 18; TEMP 98.4; O2SAT 98
[2017-09-01 19:52] VITALS: BP 129/77; PULSE 96; RESP 18; TEMP 98.9; O2SAT 98
[2017-09-01] MEDS: ACETAMINOPHEN/HYDROcodone 325 MG/5 MG TAB PO PRN (23:29)
[2017-09-02] VITALS (7 sets, daily range): BP systolic 108–149; BP diastolic 59–69; PULSE 83–97; RESP 18–20; TEMP 97.9–99.2; O2SAT 97–98
[2017-09-02] MEDS: CEFEPIME INJ 2,000 MG in SODIUM CHLORIDE 0.9% INJ 100 ML IV SCH ×3 (04:48→21:23)
[2017-09-02] MEDS: metroNIDAZOLE 500 MG INJ 100 ML IV SCH ×3 (06:54→22:13)
[2017-09-02 07:32] LABS: CREATININE 0.93 MG/DL (0.60-1.30)
[2017-09-02 07:34] LABS: VANCOMYCIN TROUGH 15.1 MCG/ML (5.0-10.0)
[2017-09-02] MEDS ORDERED: PHARMACY ORDERED LAB ONE (07:45)
[2017-09-02] MEDS: NICOTINE 14 MG/24 HR PATCH T-DERMAL SCH (09:00)
[2017-09-02] MEDS: REMOVE OLD PATCH T-DERMAL SCH (09:00)
[2017-09-02] MEDS: levETIRAcetam 500 MG TAB PO SCH ×2 (09:15→21:23)
[2017-09-02] MEDS: VANCOMYCIN 1,500 MG/NS 500 ML IV SCH ×4 (09:15→16:29)
[2017-09-02] MEDS: ACETAMIN 325 MG/BUTALBITAL 50 MG/CAFFEINE 40 MG TAB PO PRN ×2 (09:16→15:26)
--- NOTE | 2017-09-02 12:03 | HHI.NSPN ---
(Irasema Germain) Note Status Status: Progress Note (Irasema Germain) Interval History Interval History 08/24: 31-year-old male with a history of substance abuse including IV drug abuse who was recently admitted to inpatient rehabilitation center in [place] for treatment. In the treatment center, he experienced progressive headaches and blurred vision with nausea and was discharged to [facility] in [place] on 08/16/2017 for evaluation. He was seen by neurosurgery. An MRI reported positive hydrocephalus. He was felt to be a candidate for an endoscopic terminal ventriculostomy procedure. Since the procedure was not readily available at the hospital, he was discharged to the care of his family on 08/18/2017. He presented to [facility] on the early evening of 08/18/2017 with persistent headache, blurred vision, lethargy, nausea and emesis. A follow-up scan showed persistent primarily right-sided ventriculomegaly without a definite obstructive lesion. He was transferred directly to [facility] for evaluation. He underwent an initial ventriculostomy placement, followed by surgery for endoscopic terminal ventriculostomy. He remained initially in the neurosurgical intensive care postoperatively. He was seen by infectious disease. Specific cause for the hydrocephalus was not determined. There was a question of ventriculitis related to Endo toxins secondary to the patient using cotton filter during IV drug use a few weeks prior to his admission. It was elected to place the patient on IV cefepime 6 g continuous infusion, vancomycin 1250 mg IV every 8 hours with vancomycin goal level 15-20, and Flagyl 500 mg IV every 8 hours with transitioning to oral Flagyl on discharge, all with stop date 09/04/2017. The patient was transferred back to [facility] on the evening of 08/23/2017. Discharge summary with recommendations received from [facility] today. 08/26/17: Pt awake and alert. Denies headaches. No nausea or vomiting. Pt states he has pain left 5th finger from jamming it and thinks he may have fractured it. 08/27: When seen this afternoon the patient is sitting up on the edge of the bed watching TV and visiting w/a friend. He did not have a headache or any dizziness when seen but did endorse an occasional headache. He denied any extremity pain, numbness or tingling. There were no sensorimotor deficits upon evaluation. 08/28: This afternoon the patient is awake and alert in bed visiting with his girlfriend and watching TV. He does have a slight headache but denies any dizziness. He has no pain, numbness or tingling to the extremities. He has no sensorimotor deficits with evaluation. 08/29: No new complaints. No headache Tolerating diet No nausea vomiting 08/30: The patient is sitting up in the bed visiting with his girlfriend watching TV. He does say he has had a headache throughout the day but it is better than his headaches before surgery. He denies any dizziness, nausea or vomiting. He has no pain, numbness or tingling to the extremities. He has no sensorimotor deficits upon evaluation. 08/31: Still complains of headaches, a repeat CT brain was obtained yesterday which just showed slight enlargement of the right ventricle. Appears comfortable, appears in no apparent distress. 09/01: reports headaches much better today, no new neuro complaints. 09/02: doing well, no worsening headaches, c/o of mild sore throat, using his laptop at bedside. (Irasema Germain) Labs, Micro, & Vital Signs Results Date Time Temp Pulse Resp B/P (MAP) Pulse Ox O2 Delivery O2 Flow Rate FiO2 09/02/17 08:00 98.5 88 20 108/59 (75) 97 09/02/17 04:52 98.6 83 18 121/63 (82) 97 09/02/17 00:52 98.9 92 18 138/64 (88) 97 09/01/17 19:52 98.9 96 18 129/77 (94) 98 09/01/17 16:00 98.4 88 18 119/71 (87) 98 09/03/17 07:00 Intake Total 100 ml Balance 100 ml Constitutional Vital Signs Date Time Temp Pulse Resp B/P (MAP) Pulse Ox O2 Delivery O2 Flow Rate FiO2 09/02/17 08:00 98.5 88 20 108/59 (75) 97 09/02/17 04:52 98.6 83 18 121/63 (82) 97 09/02/17 00:52 98.9 92 18 138/64 (88) 97 09/01/17 19:52 98.9 96 18 129/77 (94) 98 09/01/17 16:00 98.4 88 18 119/71 (87) 98 09/03/17 07:00 Intake Total 100 ml Balance 100 ml (Irasema Germain) Review of Systems Constitutional: DENIES: Fever, Chills Ears, nose, mouth, throat: COMPLAINS OF: Throat pain Cardiovascular: DENIES: Chest pain Neurologic: DENIES: Headache, Seizures (Irasema Germain) Physical Exam Mr. Hernandez is alert, awake. Speech is fluent, conversing well. Appears comfortable, has his laptop at bedside. Scalp wound healing well, no evidence of infection. Cranial nerve examination: pupils equal, round and reactive to light. Extra- ocular movements are intact. Facial motor are normal and symmetrical. Motor: moving extremities with good strength Neck: soft, supple (Irasema Germain) Medications Current Medications Current Medications Medications (Trade) Dose Ordered Sig/Madeleine Route PRN Reason Start Time Stop Time Status Last Admin Dose Admin Acetaminophen/ Hydrocodone Bitart ([place] 5-325 Mg) 1 tab Q4H PRN PO PAIN SCALE 3 TO 5 08/23/17 19:45 09/01/17 23:29 Naloxone HCl (Narcan Inj) 0.4 mg UNSCH PRN IV PUSH SEE LABEL COMMENTS 08/23/17 19:45 Levetriacetam (Keppra) 500 mg BID PO 08/24/17 09:00 09/02/17 09:15 Acetaminophen/ Butalbital/ Caffeine (Fioricet 325-50-40) 1 tab Q6H PRN PO HEADACHE 08/23/17 23:30 09/02/17 09:16 Nicotine (Habitrol 14 Mg Patch.24 Hr) 1 patch DAILY T-DERMAL 08/23/17 23:30 08/31/17 08:45 Miscellaneous Information 1 DAILY T-DERMAL 08/24/17 09:00 08/29/17 09:00 Metronidazole 100 ml @ 100 mls/hr Q8HR IV 08/24/17 22:00 09/02/17 06:54 Cefepime HCl 2000 mg/Sodium Chloride 100 ml @ 200 mls/hr Q8H IV 08/24/17 20:00 09/02/17 04:48 Pharmacy Profile Note 0 ml @ 0 mls/hr UNSCH PRN OTHER ADJUST FOR CREATININE CLRNCE 08/25/17 11:30 Vancomycin HCl 1500 mg/Sodium Chloride 515 ml @ 257.5 mls/ hr Q8H IV 08/28/17 16:00 09/02/17 09:15 (Irasema Germain) Medical Decision Making MDM Remarks 31-year-old male with hydrocephalus, status post endoscopic third ventriculostomy at [facility], stable, headaches better (Irasema Germain) Plan Plan Remarks continue neuro checks, Follow-up examination cont current care cont abx tx per ID (Irasema Germain) Attending Statement The exam, history, and the medical decision-making described in the above note were completed with the assistance of the mid-level provider. I reviewed and agree with the findings presented. I attest that I had a [id number] encounter with the patient on the same day, and personally performed and documented my assessment and findings in the medical record. (Wing Awan MD) Irasema Germain Sep 02, 2017 12:02 Wing Awan MD Sep 02, 2017 14:08
[2017-09-03 00:39] VITALS: BP 111/58; PULSE 85; RESP 18; TEMP 98.7; O2SAT 98
[2017-09-03] MEDS: ACETAMINOPHEN/HYDROcodone 325 MG/5 MG TAB PO PRN ×2 (00:42→22:20)
[2017-09-03] MEDS: VANCOMYCIN 1,500 MG/NS 500 ML IV SCH ×6 (00:42→16:20)
[2017-09-03] MEDS: CEFEPIME INJ 2,000 MG in SODIUM CHLORIDE 0.9% INJ 100 ML IV SCH ×3 (03:54→22:18)
[2017-09-03 04:30] VITALS: BP 140/73; PULSE 81; RESP 16; TEMP 98.4; O2SAT 99
[2017-09-03] MEDS: metroNIDAZOLE 500 MG INJ 100 ML IV SCH ×3 (05:45→23:51)
[2017-09-03 08:00] VITALS: BP_SYST 135; BP_SYST 194; BP_DIAS 78; BP_DIAS 82; PULSE 104; PULSE 87; RESP 18; TEMP 99.1; TEMP 99.3; O2SAT 100; O2SAT 98
[2017-09-03] MEDS: ACETAMIN 325 MG/BUTALBITAL 50 MG/CAFFEINE 40 MG TAB PO PRN ×2 (08:02→14:33)
[2017-09-03] MEDS: levETIRAcetam 500 MG TAB PO SCH ×2 (08:02→22:18)
[2017-09-03] MEDS: NICOTINE 14 MG/24 HR PATCH T-DERMAL SCH (08:03)
[2017-09-03] MEDS: REMOVE OLD PATCH T-DERMAL SCH (09:00)
[2017-09-03 12:14] VITALS: BP 127/65; PULSE 94; RESP 18; TEMP 98.5; O2SAT 98
--- NOTE | 2017-09-03 16:01 | HHI.NSPN ---
(Tutu Woodruff) History Chief Complaint: Slight headache (Tutu Woodruff) Interval History 08/24: 31-year-old male with a history of substance abuse including IV drug abuse who was recently admitted to inpatient rehabilitation center in [place] for treatment. In the treatment center, he experienced progressive headaches and blurred vision with nausea and was discharged to [facility] in [place] on 08/16/2017 for evaluation. He was seen by neurosurgery. An MRI reported positive hydrocephalus. He was felt to be a candidate for an endoscopic terminal ventriculostomy procedure. Since the procedure was not readily available at the hospital, he was discharged to the care of his family on 08/18/2017. He presented to [facility] on the early evening of 08/18/2017 with persistent headache, blurred vision, lethargy, nausea and emesis. A follow-up scan showed persistent primarily right-sided ventriculomegaly without a definite obstructive lesion. He was transferred directly to [facility] for evaluation. He underwent an initial ventriculostomy placement, followed by surgery for endoscopic terminal ventriculostomy. He remained initially in the neurosurgical intensive care postoperatively. He was seen by infectious disease. Specific cause for the hydrocephalus was not determined. There was a question of ventriculitis related to Endo toxins secondary to the patient using cotton filter during IV drug use a few weeks prior to his admission. It was elected to place the patient on IV cefepime 6 g continuous infusion, vancomycin 1250 mg IV every 8 hours with vancomycin goal level 15-20, and Flagyl 500 mg IV every 8 hours with transitioning to oral Flagyl on discharge, all with stop date 09/04/2017. The patient was transferred back to [facility] on the evening of 08/23/2017. Discharge summary with recommendations received from [facility] today. 08/26/17: Pt awake and alert. Denies headaches. No nausea or vomiting. Pt states he has pain left 5th finger from jamming it and thinks he may have fractured it. 08/27: When seen this afternoon the patient is sitting up on the edge of the bed watching TV and visiting w/a friend. He did not have a headache or any dizziness when seen but did endorse an occasional headache. He denied any extremity pain, numbness or tingling. There were no sensorimotor deficits upon evaluation. 08/28: This afternoon the patient is awake and alert in bed visiting with his girlfriend and watching TV. He does have a slight headache but denies any dizziness. He has no pain, numbness or tingling to the extremities. He has no sensorimotor deficits with evaluation. 08/29: No new complaints. No headache Tolerating diet No nausea vomiting 08/30: The patient is sitting up in the bed visiting with his girlfriend watching TV. He does say he has had a headache throughout the day but it is better than his headaches before surgery. He denies any dizziness, nausea or vomiting. He has no pain, numbness or tingling to the extremities. He has no sensorimotor deficits upon evaluation. 08/31: Still complains of headaches, a repeat CT brain was obtained yesterday which just showed slight enlargement of the right ventricle. Appears comfortable, appears in no apparent distress. 09/01: reports headaches much better today, no new neuro complaints. 09/02: doing well, no worsening headaches, c/o of mild sore throat, using his laptop at bedside. 09/03: Patient awake in bed when seen this afternoon. He still has a slight headache but states that it is better than on . He does say that the Fioricet helps with his headache. He also states that his throat is sore and he has swollen glands. There were no sensorimotor deficits noted upon evaluation. His neck was supple and no enlarged nodes were palpated. (Tutu Woodruff) Exam Results 09/01/17 09/01/17 09/02/17 09/02/17 09/03/17 09/03/17 06: 18:00 06: 18: 06: 18:00 Intake Total 2123 ml 700 ml 1260 ml 700 ml Output Total 1000 ml 900 ml Balance -1000 ml 2123 ml -200 ml 1260 ml 700 ml Intake Oral 1160 ml IV Total 2123 ml 700 ml 100 ml 700 ml Output Urine Total 1000 ml 900 ml # Voids 3 6 2 1 # Bowel Movements 2 Vital Signs Date Time Temp Pulse Resp B/P (MAP) Pulse Ox O2 Delivery O2 Flow Rate FiO2 09/03/17 12:14 98.5 94 18 127/65 (85) 98 09/03/17 08:00 99.1 87 18 135/78 (97) 98 09/03/17 04:30 98.4 81 16 140/73 (95) 99 09/03/17 00:39 98.7 85 18 111/58 (75) 98 09/02/17 21:00 98.3 90 18 118/62 (80) 97 09/02/17 16:00 98.3 91 20 123/69 (87) 98 09/02/17 12:46 97.9 86 20 119/65 (83) 97 09/02/17 08:00 98.5 88 20 108/59 (75) 97 09/02/17 04:52 98.6 83 18 121/63 (82) 97 09/02/17 00:52 98.9 92 18 138/64 (88) 97 09/01/17 19:52 98.9 96 18 129/77 (94) 98 09/01/17 16:00 98.4 88 18 119/71 (87) 98 09/01/17 12:00 97.9 86 17 131/74 (93) 96 09/01/17 08:16 98.4 80 16 107/73 (84) 97 09/01/17 04:00 98.2 89 18 95/54 (68) 96 09/01/17 04:00 98.2 89 18 95/54 (68) 96 09/01/17 00:00 98.7 73 18 112/62 (79) 98 08/31/17 20:02 98.2 81 18 119/58 (78) 97 08/31/17 17:25 99.0 89 18 121/82 (95) 98 (Tutu Woodruff) Physical Examination GENERAL: The patient is awake & alert, lying in bed watching TV. His affect is normal & he readily interacts. He is not in any apparent distress. HEENT: Normocephalic. Right frontal incision approximated, dry and intact, no erythema or streaking noted. PERRLA 3 mm brisk. MMM & tongue midline to protrusion, no erythema noted to pharynx. NECK: Neck supple, no enlarged lymph nodes palpable, no JVD, trachea midline. MUSCULOSKELETAL: PEREZ spontaneously & purposefully w/o difficulty. Extremities NTTP. No evident clubbing or deformity. NEUROLOGICAL: AAOx3. Speech clear & appropriate. CN II through XII grossly intact. PERRLA 3 mm brisk. Tongue midline to protrusion. Follows simple commands w/o difficulty. Sensation is intact to light touch to all extremities. Motor strength is 5/5 to all major flexion & extension muscle groups of the extremities. (Tutu Woodruff) Lab, Micro, Other Results Laboratory Tests Test 09/02/17 06:59 Creatinine 0.93 MG/DL Estimat Glomerular Filtration Rate 96 ML/MIN Vancomycin Level Trough 15.1 MCG/ML (Tutu Woodruff) Medical Decision Making Impression and Plan Impression: 1. Recent diagnosis of hydrocephalus, probable ventriculitis. Possible related to IV drug use. 2. Substance abuse 3. Possible hepatitis C-laboratory results pending at time of discharge from [facility] Patient continues to do well. Slight headache still, controlled w/Fioricet. His neuro exam remains stable. Past 24 hrs: Afebrile. No labs for today. CT brain demonstrated enlargement of the right lateral ventricle. Encephalomalacia along ventriculostomy track. Plan: Neuro checks q4h. Vital signs q4h. I&O q8h. Antibiotics per Infectious Disease. Levetiracetam for seizure prophylaxis. Mobilise patient w/assistance. Physical Therapy eval & tx. CT brain w/o contrast now. (Tutu Woodruff) Attending Statement The exam, history, and the medical decision-making described in the above note were completed with the assistance of the mid-level provider. I reviewed and agree with the findings presented. I attest that I had a [id number] encounter with the patient on the same day, and personally performed and documented my assessment and findings in the medical record. Patient remains awake and alert today. Complains of intermittent headache. No nausea vomiting. No stiff neck. CT scan head 09/03/2017 reveals some improvement in right frontal ventriculomegaly compared to 08/30/2017 CT scan. Appears neurologically stable. Complete antibiotics. (Maximus Reyes MD) Tutu Woodruff Sep 03, 2017 16:01 Maximus Reyes MD Sep 04, 2017 00:17
[2017-09-03 16:12] VITALS: BP 118/76; PULSE 90; RESP 18; TEMP 98.6; O2SAT 98
[2017-09-03 21:30] VITALS: BP 115/71; PULSE 85; RESP 16; TEMP 99; O2SAT 98
--- NOTE | 2017-09-03 21:36 | RADRPT ---
EXAM DATE: 09/03/2017 8:23 PM EDT AGE/SEX: 31 years / Male INDICATIONS: Cephalgia. CLINICAL DATA: This is the patient's initial encounter. Patient reports that signs and symptoms have been present for 3 days and indicates a pain score of 5/10. MEDICAL/SURGICAL HISTORY: . Substance abuse. Hydrocephalus. . Ventriculostomy. RADIATION DOSE: 38.21 CTDI (mGy) COMPARISON: [facility], CT BRAIN W/O CONTRAST, 08/30/2017. . TECHNIQUE: CT of the head without contrast. Using automated exposure control and adjustment of the mA and/or kV according to patient size, radiation dose was kept as low as reasonably achievable to ob tain optimal diagnostic quality images. DICOM format image data is available electronically for revi ew and comparison. FINDINGS: Cerebrum: Ventricles are normal in size with right side slightly larger than the left 5 decreased in size from the prior study performed 4 days ago. There is stable encephalomalacia in the right fronta l periventricular white matter. No midline shift, mass lesion, hemorrhage or acute infarction. No ex traaxial fluid collections are seen. Posterior Fossa: The cerebellum and brainstem demonstrate no acute abnormality. The 4th ventricle is midline. The cerebellopontine angle is within normal limits. Extracranial: The visualized sinuses are clear. There is mild scalp soft tissue swelling adjacent to the right frontal morris hole. This is a stable finding. Skull: There is a stable right frontal bone morris hole. CONCLUSION: 1. No acute intracranial abnormality is identified. The right ventricle remains mildly asymmetricall y larger than the left but overall significantly decreased in size compared to the prior study from 4 days ago. 2. Stable right frontal lobe periventricular encephalomalacia with right frontal morris hole. Electronically signed by: Grayson Barger MD 09/03/2017 9:35 PM EDT
[2017-09-04 00:30] VITALS: BP 113/68; PULSE 80; RESP 16; TEMP 99; O2SAT 99
[2017-09-04] MEDS: VANCOMYCIN 1,500 MG/NS 500 ML IV SCH ×6 (01:03→17:08)
[2017-09-04] MEDS: CEFEPIME INJ 2,000 MG in SODIUM CHLORIDE 0.9% INJ 100 ML IV SCH ×3 (04:44→20:41)
[2017-09-04] MEDS: metroNIDAZOLE 500 MG INJ 100 ML IV SCH ×3 (05:42→20:45)
[2017-09-04 05:50] VITALS: BP 121/80; PULSE 89; RESP 16; TEMP 98; O2SAT 98
[2017-09-04] MEDS: ACETAMIN 325 MG/BUTALBITAL 50 MG/CAFFEINE 40 MG TAB PO PRN ×3 (05:50→14:43)
[2017-09-04] MEDS: REMOVE OLD PATCH T-DERMAL SCH (08:27)
[2017-09-04] MEDS: levETIRAcetam 500 MG TAB PO SCH ×2 (08:27→20:45)
[2017-09-04] MEDS: NICOTINE 14 MG/24 HR PATCH T-DERMAL SCH (08:28)
[2017-09-04 08:42] VITALS: BP 123/81; PULSE 85; RESP 18; TEMP 98.7; O2SAT 98
[2017-09-04 11:07] LABS: CREATININE 0.83 MG/DL (0.60-1.30)
--- NOTE | 2017-09-04 11:41 | HHI.NSPN ---
(Tutu Woodruff) History Chief Complaint: Slight headache that is better. (KacyTutu) Interval History 08/24: 31-year-old male with a history of substance abuse including IV drug abuse who was recently admitted to inpatient rehabilitation center in [place] for treatment. In the treatment center, he experienced progressive headaches and blurred vision with nausea and was discharged to [facility] in [place] on 08/16/2017 for evaluation. He was seen by neurosurgery. An MRI reported positive hydrocephalus. He was felt to be a candidate for an endoscopic terminal ventriculostomy procedure. Since the procedure was not readily available at the hospital, he was discharged to the care of his family on 08/18/2017. He presented to [facility] on the early evening of 08/18/2017 with persistent headache, blurred vision, lethargy, nausea and emesis. A follow-up scan showed persistent primarily right-sided ventriculomegaly without a definite obstructive lesion. He was transferred directly to [facility] for evaluation. He underwent an initial ventriculostomy placement, followed by surgery for endoscopic terminal ventriculostomy. He remained initially in the neurosurgical intensive care postoperatively. He was seen by infectious disease. Specific cause for the hydrocephalus was not determined. There was a question of ventriculitis related to Endo toxins secondary to the patient using cotton filter during IV drug use a few weeks prior to his admission. It was elected to place the patient on IV cefepime 6 g continuous infusion, vancomycin 1250 mg IV every 8 hours with vancomycin goal level 15-20, and Flagyl 500 mg IV every 8 hours with transitioning to oral Flagyl on discharge, all with stop date 09/04/2017. The patient was transferred back to [facility] on the evening of 08/23/2017. Discharge summary with recommendations received from [facility] today. 08/26/17: Pt awake and alert. Denies headaches. No nausea or vomiting. Pt states he has pain left 5th finger from jamming it and thinks he may have fractured it. 08/27: When seen this afternoon the patient is sitting up on the edge of the bed watching TV and visiting w/a friend. He did not have a headache or any dizziness when seen but did endorse an occasional headache. He denied any extremity pain, numbness or tingling. There were no sensorimotor deficits upon evaluation. 08/28: This afternoon the patient is awake and alert in bed visiting with his girlfriend and watching TV. He does have a slight headache but denies any dizziness. He has no pain, numbness or tingling to the extremities. He has no sensorimotor deficits with evaluation. 08/29: No new complaints. No headache Tolerating diet No nausea vomiting 08/30: The patient is sitting up in the bed visiting with his girlfriend watching TV. He does say he has had a headache throughout the day but it is better than his headaches before surgery. He denies any dizziness, nausea or vomiting. He has no pain, numbness or tingling to the extremities. He has no sensorimotor deficits upon evaluation. 08/31: Still complains of headaches, a repeat CT brain was obtained yesterday which just showed slight enlargement of the right ventricle. Appears comfortable, appears in no apparent distress. 09/01: reports headaches much better today, no new neuro complaints. 09/02: doing well, no worsening headaches, c/o of mild sore throat, using his laptop at bedside. 09/03: Patient awake in bed when seen this afternoon. He still has a slight headache but states that it is better than on . He does say that the Fioricet helps with his headache. He also states that his throat is sore and he has swollen glands. There were no sensorimotor deficits noted upon evaluation. His neck was supple and no enlarged nodes were palpated. 09/04: Today the patient is asleep when seen but awakens to voice. He does say he has a slight headache but it is better than yesterday. He denies any nausea or vomiting. He does say the neck is sore still. He has no extremity pain, numbness, tingling or weakness. Upon evaluation he has no sensorimotor deficits. He had a repeat CT brain yesterday which was improved from although the right ventricle is slightly larger than the left. (Tutu Woodruff) Exam Results 6/24/18 6/24/18 09/03/17 09/03/17 09/04/17 09/04/17 06:00 18:00 06:00 18:00 06:00 18:00 Intake Total 700 ml 1260 ml 700 ml 4900 ml Output Total 900 ml Balance -200 ml 1260 ml 700 ml 4900 ml Intake Oral 1160 ml 4200 ml IV Total 700 ml 100 ml 700 ml 700 ml Output Urine Total 900 ml # Voids 6 2 1 6 # Bowel Movements 2 2 Vital Signs Date Time Temp Pulse Resp B/P (MAP) Pulse Ox O2 Delivery O2 Flow Rate FiO2 09/04/17 08:42 98.7 85 18 123/81 (95) 98 09/04/17 05:50 98.0 89 16 121/80 (94) 98 09/04/17 00:30 99.0 80 16 113/68 (83) 99 09/03/17 21:30 99.0 85 16 115/71 (86) 98 09/03/17 16:12 98.6 90 18 118/76 (90) 98 09/03/17 12:14 98.5 94 18 127/65 (85) 98 09/03/17 08:00 99.1 87 18 135/78 (97) 98 09/03/17 04:30 98.4 81 16 140/73 (95) 99 09/03/17 00:39 98.7 85 18 111/58 (75) 98 09/02/17 21:00 98.3 90 18 118/62 (80) 97 09/02/17 16:00 98.3 91 20 123/69 (87) 98 09/02/17 12:46 97.9 86 20 119/65 (83) 97 09/02/17 08:00 98.5 88 20 108/59 (75) 97 09/02/17 04:52 98.6 83 18 121/63 (82) 97 09/02/17 00:52 98.9 92 18 138/64 (88) 97 09/01/17 19:52 98.9 96 18 129/77 (94) 98 09/01/17 16:00 98.4 88 18 119/71 (87) 98 09/01/17 12:00 97.9 86 17 131/74 (93) 96 (Tutu Woodruff) Physical Examination GENERAL: The patient is asleep in bed. His affect is normal & he readily interacts. He is not in any apparent distress. HEENT: Normocephalic. Right frontal incision approximated, dry and intact, no erythema or streaking noted. PERRLA 3 mm brisk. MMM & tongue midline to protrusion, no erythema noted to pharynx. NECK: Neck supple, no enlarged lymph nodes palpable, no JVD, trachea midline. MUSCULOSKELETAL: PEREZ spontaneously & purposefully w/o difficulty. Extremities NTTP. No evident clubbing or deformity. NEUROLOGICAL: AAOx3. Speech clear & appropriate. CN II through XII grossly intact. PERRLA 3 mm brisk. Tongue midline to protrusion. Follows simple commands w/o difficulty. Sensation is intact to light touch to all extremities. Motor strength is 5/5 to all major flexion & extension muscle groups of the extremities. (Tutu Woodruff) Lab, Micro, Other Results Recent Impressions Head CT 09/03/17 0000 Signed Impressions: CONCLUSION: 1. No acute intracranial abnormality is identified. The right ventricle remain s mildly asymmetrically larger than the left but overall significantly decrease d in size compared to the prior study from 4 days ago. 2. Stable right frontal lobe periventricular encephalomalacia with right front al morris hole. Laboratory Tests Test 09/02/17 06:59 09/04/17 09:20 Creatinine 0.93 MG/DL 0.83 MG/DL Estimat Glomerular Filtration Rate 96 ML/MIN 110 ML/MIN Vancomycin Level Trough 15.1 MCG/ML (Tutu Woodruff) Medical Decision Making Impression and Plan Impression: 1. Recent diagnosis of hydrocephalus, probable ventriculitis. Possible related to IV drug use. 2. Substance abuse 3. Possible hepatitis C-laboratory results pending at time of discharge from [facility] Patient is doing well. Slight headache that has improved from yesterday. His neuro exam remains stable. Past 24 hrs: Afebrile. Reviewed labs for today. CT brain demonstrated right lateral ventricle mildly larger than left but overall decreased from . Stable right frontal lobe periventricular encephalomalacia. No acute intracranial abnormality. Plan: Neuro checks q4h. Vital signs q4h. I&O q8h. Antibiotics per Infectious Disease. Levetiracetam for seizure prophylaxis. Mobilise patient w/assistance. Physical Therapy eval & tx. (Tutu Woodruff) Attending Statement The exam, history, and the medical decision-making described in the above note were completed with the assistance of the mid-level provider. I reviewed and agree with the findings presented. I attest that I had a [id number] encounter with the patient on the same day, and personally performed and documented my assessment and findings in the medical record. Patient sleeping quite a bit today but arouses easily, awake and alert. No focal deficit Follow-up CT scan of the head yesterday revealed improvement in the right ventricular size. Mild intermittent headache. No nausea vomiting. Stable from neurosurgical standpoint. Completing course of antibiotics. (Maximus Reyes MD) Tutu Woodruff Sep 04, 2017 11:41 Maximus Reyes MD Sep 04, 2017 20:14
[2017-09-04 12:00] VITALS: BP 118/67; PULSE 86; RESP 18; TEMP 98.3; O2SAT 97
[2017-09-04] MEDS ORDERED: ALTEPLASE RECOMBINANT 2 MG VIAL INTRACATH ONE (12:15)
--- NOTE | 2017-09-04 15:42 | HHI.IDPN ---
Note Infectious Disease Note Patient says he feels fine. He notes some lymph node swelling at the neck. No other complaints. Afebrile. Ambulating and says that he has no difficulties with balance and no dizziness. The patient underwent terminal ventriculostomy at [facility] in [place]. The patient is an IV drug user. He developed headache along with blurred vision and nausea and eventually was found to have hydrocephalus. While at [facility], he was seen by infectious disease specialty and he was put on IV antibiotics in the form of vancomycin, cefepime, and Flagyl. Cultures were negative. The plan was to continue the antibiotics up until 09/04/2017. PAST MEDICAL HISTORY: 1. Hydrocephalus. 2. Hepatitis C. 3. Endoscopic terminal ventriculostomy in 08/2017.. ALLERGIES: NO KNOWN DRUG ALLERGIES. MEDICATIONS: Current Medications Medications (Trade) Dose Ordered Sig/Madeleine Route PRN Reason Start Time Stop Time Status Last Admin Dose Admin Acetaminophen/ Hydrocodone Bitart ([place] 5-325 Mg) 1 tab Q4H PRN PO PAIN SCALE 3 TO 5 08/23/17 19:45 09/03/17 22:20 Naloxone HCl (Narcan Inj) 0.4 mg UNSCH PRN IV PUSH SEE LABEL COMMENTS 08/23/17 19:45 Levetriacetam (Keppra) 500 mg BID PO 08/24/17 09:00 09/04/17 08:27 Acetaminophen/ Butalbital/ Caffeine (Fioricet 325-50-40) 1 tab Q6H PRN PO HEADACHE 08/23/17 23:30 09/04/17 14:43 Nicotine (Habitrol 14 Mg Patch.24 Hr) 1 patch DAILY T-DERMAL 08/23/17 23:30 09/04/17 08:28 Miscellaneous Information 1 DAILY T-DERMAL 08/24/17 09:00 09/04/17 08:27 Metronidazole 100 ml @ 100 mls/hr Q8HR IV 08/24/17 22:00 09/04/17 14:43 Cefepime HCl 2000 mg/Sodium Chloride 100 ml @ 200 mls/hr Q8H IV 08/24/17 20:00 09/04/17 13:03 Pharmacy Profile Note 0 ml @ 0 mls/hr UNSCH PRN OTHER ADJUST FOR CREATININE CLRNCE 08/25/17 11:30 Vancomycin HCl 1500 mg/Sodium Chloride 515 ml @ 257.5 mls/ hr Q8H IV 08/28/17 16:00 09/04/17 08:27 SOCIAL HISTORY: Positive alcohol use. The patient smokes a pack of cigarettes a day. Positive marijuana. Positive cocaine. IV substance abuse. Objective: Vital Signs Date Time Temp Pulse Resp B/P (MAP) Pulse Ox O2 Delivery O2 Flow Rate FiO2 09/04/17 12:00 98.3 86 18 118/67 (84) 97 09/04/17 08:42 98.7 85 18 123/81 (95) 98 09/04/17 05:50 98.0 89 16 121/80 (94) 98 09/04/17 00:30 99.0 80 16 113/68 (83) 99 09/03/17 21:30 99.0 85 16 115/71 (86) 98 09/03/17 16:12 98.6 90 18 118/76 (90) 98 Laboratory Tests Test 09/04/17 09:20 Creatinine 0.83 MG/DL Estimat Glomerular Filtration Rate 110 ML/MIN PHYSICAL EXAMINATION: GENERAL: No acute distress. Patient is awake and alert and oriented. HEENT: Head is atraumatic. The incision at the frontal vertex aspect of the head is intact and sutures are in place. Extraocular movements grossly intact. Pupils reactive to light. No icterus. Oropharynx moist mucosa without lesions. NECK: Supple. No adenopathy. LUNGS: Clear breath sounds bilaterally. HEART: Regular rate and rhythm. No audible murmurs, rubs or gallops. ABDOMEN: Bowel sounds present, soft, nontender. EXTREMITIES: No clubbing or cyanosis or edema. PICC line in right upper extremity is intact. SKIN: No rash. NEUROLOGIC: No gross focal finding. Strength 5/5 in all extremities. PSYCHIATRIC: The patient is calm and pleasant and cooperative. IMPRESSION: Ventriculitis in the patient who developed headache following IV drug use. The patient is status post terminal ventriculostomy for hydrocephalus. Currently receiving broad spectrum antibiotics. Cultures were negative. Remains clinically stable. He has received the outlined course of IV vancomycin, cefepime and Flagyl. He is in no distress. RECOMMENDATIONS: Okay to discharge the patient tomorrow after completion of antibiotics today. Follow-up with neurosurgery as needed. I will sign off now. Please call if further infectious disease input is needed. Ismael Iqbal MD Sep 04, 2017 15:42
[2017-09-04 16:00] VITALS: BP 119/79; PULSE 87; RESP 18; TEMP 98.3; O2SAT 98
[2017-09-04 20:00] VITALS: BP 110/62; PULSE 90; RESP 20; TEMP 100; O2SAT 97
[2017-09-04] MEDS: ACETAMINOPHEN/HYDROcodone 325 MG/5 MG TAB PO PRN (21:19)
[2017-09-05] MEDS: VANCOMYCIN 1,500 MG/NS 500 ML IV SCH ×6 (00:33→16:29)
[2017-09-05 00:38] VITALS: BP 119/61; PULSE 86; RESP 18; TEMP 98.3; O2SAT 98
[2017-09-05 04:00] VITALS: BP 148/92; PULSE 82; RESP 20; TEMP 99; O2SAT 98
[2017-09-05] MEDS: ACETAMINOPHEN/HYDROcodone 325 MG/5 MG TAB PO PRN (04:45)
[2017-09-05] MEDS: CEFEPIME INJ 2,000 MG in SODIUM CHLORIDE 0.9% INJ 100 ML IV SCH ×3 (04:45→21:08)
[2017-09-05] MEDS: metroNIDAZOLE 500 MG INJ 100 ML IV SCH ×3 (04:45→22:00)
[2017-09-05 08:00] VITALS: BP 105/61; PULSE 78; RESP 18; TEMP 98.2; O2SAT 97
[2017-09-05] MEDS: levETIRAcetam 500 MG TAB PO SCH ×2 (08:37→21:08)
[2017-09-05] MEDS: REMOVE OLD PATCH T-DERMAL SCH (08:38)
[2017-09-05] MEDS: ACETAMIN 325 MG/BUTALBITAL 50 MG/CAFFEINE 40 MG TAB PO PRN (08:38)
[2017-09-05] MEDS: NICOTINE 14 MG/24 HR PATCH T-DERMAL SCH (08:38)
[2017-09-05 12:00] VITALS: BP 123/83; PULSE 97; RESP 18; TEMP 99; O2SAT 98
[2017-09-05 16:00] VITALS: BP 119/69; PULSE 97; RESP 18; TEMP 99.1; O2SAT 96
[2017-09-05 20:45] VITALS: BP 115/69; PULSE 75; RESP 16; TEMP 98; O2SAT 98
--- NOTE | 2017-09-05 22:51 | HHI.NSPN ---
History Interval History No new complaints. No headache Tolerating diet No nausea vomiting Exam Results Vital Signs Date Time Temp Pulse Resp B/P (MAP) Pulse Ox O2 Delivery O2 Flow Rate FiO2 09/05/17 16:00 99.1 97 18 119/69 (86) 96 Physical Examination Alert Speech clear Oriented conversant Medical Decision Making Impression and Plan Impression: 1. Stable neurologic status following endoscopic third ventricular fenestration. Possible ventriculitis. Plan: Findings were discussed with the patient again this evening Infectious disease notes reviewed Discontinue antibiotic therapy. May discharge home 09/06/2017 if remains afebrile and no new problems develop. Can follow-up outpatient with neurosurgery in 10-14 days. Maximus Reyes MD Sep 05, 2017 22:51
[2017-09-06 00:15] VITALS: BP 118/67; PULSE 67; RESP 16; TEMP 98.8; O2SAT 98
[2017-09-06 04:45] VITALS: BP 120/65; PULSE 66; RESP 16; TEMP 98; O2SAT 99
[2017-09-06 08:00] VITALS: BP 118/71; PULSE 99; RESP 18; TEMP 98.2; O2SAT 95
[2017-09-06] MEDS: ACETAMIN 325 MG/BUTALBITAL 50 MG/CAFFEINE 40 MG TAB PO PRN (08:31)
[2017-09-06] MEDS: REMOVE OLD PATCH T-DERMAL SCH (08:31)
[2017-09-06] MEDS: NICOTINE 14 MG/24 HR PATCH T-DERMAL SCH (08:31)
[2017-09-06] MEDS: levETIRAcetam 500 MG TAB PO SCH (08:31)
[2017-09-06 08:50] LABS: CREATININE 0.85 MG/DL (0.60-1.30)
--- NOTE | 2017-09-06 11:46 | HHI.NSPN ---
History Chief Complaint: No complaints Interval History 08/24: 31-year-old male with a history of substance abuse including IV drug abuse who was recently admitted to inpatient rehabilitation center in [place] for treatment. In the treatment center, he experienced progressive headaches and blurred vision with nausea and was discharged to [facility] in [place] on 08/16/2017 for evaluation. He was seen by neurosurgery. An MRI reported positive hydrocephalus. He was felt to be a candidate for an endoscopic terminal ventriculostomy procedure. Since the procedure was not readily available at the hospital, he was discharged to the care of his family on 08/18/2017. He presented to [facility] on the early evening of 08/18/2017 with persistent headache, blurred vision, lethargy, nausea and emesis. A follow-up scan showed persistent primarily right-sided ventriculomegaly without a definite obstructive lesion. He was transferred directly to [facility] for evaluation. He underwent an initial ventriculostomy placement, followed by surgery for endoscopic terminal ventriculostomy. He remained initially in the neurosurgical intensive care postoperatively. He was seen by infectious disease. Specific cause for the hydrocephalus was not determined. There was a question of ventriculitis related to Endo toxins secondary to the patient using cotton filter during IV drug use a few weeks prior to his admission. It was elected to place the patient on IV cefepime 6 g continuous infusion, vancomycin 1250 mg IV every 8 hours with vancomycin goal level 15-20, and Flagyl 500 mg IV every 8 hours with transitioning to oral Flagyl on discharge, all with stop date 09/04/2017. The patient was transferred back to [facility] on the evening of 08/23/2017. Discharge summary with recommendations received from [facility] today. 08/26/17: Pt awake and alert. Denies headaches. No nausea or vomiting. Pt states he has pain left 5th finger from jamming it and thinks he may have fractured it. 08/27: When seen this afternoon the patient is sitting up on the edge of the bed watching TV and visiting w/a friend. He did not have a headache or any dizziness when seen but did endorse an occasional headache. He denied any extremity pain, numbness or tingling. There were no sensorimotor deficits upon evaluation. 08/28: This afternoon the patient is awake and alert in bed visiting with his girlfriend and watching TV. He does have a slight headache but denies any dizziness. He has no pain, numbness or tingling to the extremities. He has no sensorimotor deficits with evaluation. 08/29: No new complaints. No headache Tolerating diet No nausea vomiting 08/30: The patient is sitting up in the bed visiting with his girlfriend watching TV. He does say he has had a headache throughout the day but it is better than his headaches before surgery. He denies any dizziness, nausea or vomiting. He has no pain, numbness or tingling to the extremities. He has no sensorimotor deficits upon evaluation. 08/31: Still complains of headaches, a repeat CT brain was obtained yesterday which just showed slight enlargement of the right ventricle. Appears comfortable, appears in no apparent distress. 09/01: reports headaches much better today, no new neuro complaints. 09/02: doing well, no worsening headaches, c/o of mild sore throat, using his laptop at bedside. 09/03: Patient awake in bed when seen this afternoon. He still has a slight headache but states that it is better than on . He does say that the Fioricet helps with his headache. He also states that his throat is sore and he has swollen glands. There were no sensorimotor deficits noted upon evaluation. His neck was supple and no enlarged nodes were palpated. 09/04: Today the patient is asleep when seen but awakens to voice. He does say he has a slight headache but it is better than yesterday. He denies any nausea or vomiting. He does say the neck is sore still. He has no extremity pain, numbness, tingling or weakness. Upon evaluation he has no sensorimotor deficits. He had a repeat CT brain yesterday which was improved from although the right ventricle is slightly larger than the left. 09/05: No new complaints. No headache Tolerating diet No nausea vomiting 09/06: This morning the patient is doing well and has no complaints. He denies any headache, dizziness, fever or chills. He has no extremity pain, numbness, tingling or weakness. There is no change in is neuro exam upon evaluation. Exam Results 09/04/17 09/04/17 09/05/17 09/05/17 09/06/17 09/06/17 06:00 18:00 06:00 18:00 06:00 18:00 Intake Total 4900 ml 700 ml 2425 ml Balance 4900 ml 700 ml 2425 ml Intake Oral 4200 ml 2225 ml IV Total 700 ml 700 ml 200 ml # Voids 6 1 3 # Bowel Movements 2 1 Vital Signs Date Time Temp Pulse Resp B/P (MAP) Pulse Ox O2 Delivery O2 Flow Rate FiO2 09/06/17 08:00 98.2 99 18 118/71 (87) 95 09/06/17 04:45 98.0 66 16 120/65 (83) 99 09/06/17 00:15 98.8 67 16 118/67 (84) 98 09/05/17 20:45 98.0 75 16 115/69 (84) 98 09/05/17 16:00 99.1 97 18 119/69 (86) 96 09/05/17 12:00 99.0 97 18 123/83 (96) 98 09/05/17 08:00 98.2 78 18 105/61 (76) 97 09/05/17 04:00 99.0 82 20 148/92 (110) 98 09/05/17 00:38 98.3 86 18 119/61 (80) 98 09/04/17 20:00 100.0 90 20 110/62 (78) 97 09/04/17 16:00 98.3 87 18 119/79 (92) 98 09/04/17 12:00 98.3 86 18 118/67 (84) 97 09/04/17 08:42 98.7 85 18 123/81 (95) 98 09/04/17 05:50 98.0 89 16 121/80 (94) 98 09/04/17 00:30 99.0 80 16 113/68 (83) 99 09/03/17 21:30 99.0 85 16 115/71 (86) 98 09/03/17 16:12 98.6 90 18 118/76 (90) 98 09/03/17 12:14 98.5 94 18 127/65 (85) 98 Physical Examination GENERAL: The patient is awake in bed watching a baseball game. His affect is normal & he readily interacts. He is not in any apparent distress. HEENT: Normocephalic. Right frontal incision approximated, dry and intact, no erythema or streaking noted. PERRLA 3 mm brisk. MMM & tongue midline to protrusion, no erythema noted to pharynx. NECK: Neck supple, no enlarged lymph nodes palpable, no JVD, trachea midline. MUSCULOSKELETAL: PEREZ spontaneously & purposefully w/o difficulty. Extremities NTTP. No evident clubbing or deformity. NEUROLOGICAL: AAOx3. Speech clear & appropriate. CN II through XII grossly intact. PERRLA 3 mm brisk. Tongue midline to protrusion. Follows simple commands w/o difficulty. Sensation is intact to light touch to all extremities. Motor strength is 5/5 to all major flexion & extension muscle groups of the extremities. Lab, Micro, Other Results Laboratory Tests Test 09/04/17 09:20 09/06/17 07:20 Creatinine 0.83 MG/DL 0.85 MG/DL Estimat Glomerular Filtration Rate 110 ML/MIN 107 ML/MIN Medical Decision Making Impression and Plan Impression: 1. Recent diagnosis of hydrocephalus, probable ventriculitis. Possible related to IV drug use. 2. Substance abuse 3. Possible hepatitis C-laboratory results pending at time of discharge from [facility] Patient continues to do well. No headache. Neuro exam stable. Past 24 hrs: 99.1 T max. Reviewed labs for today. CT brain demonstrated right lateral ventricle mildly larger than left but overall decreased from . Stable right frontal lobe periventricular encephalomalacia. No acute intracranial abnormality. Plan: Neuro checks q4h. Vital signs q4h. I&O q8h. Levetiracetam for seizure prophylaxis. Mobilise patient w/assistance. Physical Therapy eval & tx. Will discharge patient and have follow-up in the office. Tutu Woodruff Sep 06, 2017 11:46
[2017-09-06 12:00] VITALS: BP 115/72; PULSE 94; RESP 18; TEMP 98.5; O2SAT 94
--- NOTE | 2017-09-06 15:26 | HHI.DCPOC ---
Discharge Care Plan Diagnosis: (1) Hydrocephalus (2) Cerebral ventriculitis Your Health Problems Are: Incision/Drains Goals to Promote Your Health * To prevent worsening of your condition and complications * To maintain your health at the optimal level You may gently wash the scalp and then pat dry. You may take acetaminophen per the package directions for a headache. Avoid taking any medication that contains NSAIDs (ibuprofen, naproxen, Motrin, Advil, Naprosyn) for at least three months. No smoking for at least three months. Follow up on Sunday at 1:30 PM for a wound check. If you are unable to keep your appointment call the office at [phone] to reschedule your follow up appointment. Call the office for any worsening headache, visual difficulty, confusion or other concerns. Directions to Meet Your Goals Take your medications as prescribed Follow your dietary instruction Follow activity as directed You may gently wash the scalp and then pat dry. You may take acetaminophen per the package directions for a headache. Avoid taking any medication that contains NSAIDs (ibuprofen, naproxen, Motrin, Advil, Naprosyn) for at least three months. No smoking for at least three months. Follow up on Sunday at 1:30 PM for a wound check. If you are unable to keep your appointment call the office at [phone] to reschedule your follow up appointment. Call the office for any worsening headache, visual difficulty, confusion or other concerns. Keep your appointments as scheduled Take your immunizations and boosters as scheduled If your symptoms worsen call your PCP, if no PCP go to Urgent Care Center or Emergency Room Smoking is Dangerous to Your Health. Avoid second hand smoke Call the 24-hour hour crisis hotline for domestic abuse at Tutu Woodruff Sep 06, 2017 15:26
[2017-09-06] MEDS ORDERED: LEVE500T8 PO (15:33)
--- NOTE | 2017-09-06 15:59 | HHI.DS ---
Discharge Summary Admission Date Aug 23, 2017 at 19:11 Discharge Date: Sep 06, 2017 Admitting Diagnosis (1) Hydrocephalus Diagnosis: Principal ICD Code: G91.9 - Hydrocephalus, unspecified (2) Cerebral ventriculitis Diagnosis: Secondary ICD Code: G04.90 - Encephalitis and encephalomyelitis, unspecified Procedures : Endoscopic third ventriculostomy at [facility]. Brief History 31-year-old male with a history of substance abuse including IV drug abuse who was recently admitted to inpatient rehabilitation center in [place] for treatment. In the treatment center, he experienced progressive headaches and blurred vision with nausea and was discharged to [facility] in [place] on 08/16/2017 for evaluation. He was seen by neurosurgery. An MRI reported positive hydrocephalus. He was felt to be a candidate for an endoscopic terminal ventriculostomy procedure. Since the procedure was not readily available at the hospital, he was discharged to the care of his family on 08/18/2017. He presented to [facility] on the early evening of 08/18/2017 with persistent headache, blurred vision, lethargy, nausea and emesis. A follow -up scan showed persistent primarily right-sided ventriculomegaly without a definite obstructive lesion. He was transferred directly to [facility] for evaluation. He underwent an initial ventriculostomy placement, followed by surgery for endoscopic terminal ventriculostomy. He remained initially in the neurosurgical intensive care postoperatively. He was seen by infectious disease. Specific cause for the hydrocephalus was not determined. There was a question of ventriculitis related to Endo toxins secondary to the patient using cotton filter during IV drug use a few weeks prior to his admission. It was elected to place the patient on IV cefepime 6 g continuous infusion, vancomycin 1250 mg IV every 8 hours with vancomycin goal level 15-20, and Flagyl 500 mg IV every 8 hours with transitioning to oral Flagyl on discharge, all with stop date 09/04/2017. The patient was transferred back to [facility] on the evening of 08/23/2017. Discharge summary with recommendations received from [facility] today. CBC/BMP: 09/06/17 0720 Significant Findings Laboratory Tests Test 09/04/17 09:20 09/06/17 07:20 Hospital Course 08/24: 31-year-old male with a history of substance abuse including IV drug abuse who was recently admitted to inpatient rehabilitation center in [place] for treatment. In the treatment center, he experienced progressive headaches and blurred vision with nausea and was discharged to [facility] in [place] on 08/16/2017 for evaluation. He was seen by neurosurgery. An MRI reported positive hydrocephalus. He was felt to be a candidate for an endoscopic terminal ventriculostomy procedure. Since the procedure was not readily available at the hospital, he was discharged to the care of his family on 08/18/2017. He presented to [facility] on the early evening of 08/18/2017 with persistent headache, blurred vision, lethargy, nausea and emesis. A follow-up scan showed persistent primarily right-sided ventriculomegaly without a definite obstructive lesion. He was transferred directly to [facility] for evaluation. He underwent an initial ventriculostomy placement, followed by surgery for endoscopic terminal ventriculostomy. He remained initially in the neurosurgical intensive care postoperatively. He was seen by infectious disease. Specific cause for the hydrocephalus was not determined. There was a question of ventriculitis related to Endo toxins secondary to the patient using cotton filter during IV drug use a few weeks prior to his admission. It was elected to place the patient on IV cefepime 6 g continuous infusion, vancomycin 1250 mg IV every 8 hours with vancomycin goal level 15-20, and Flagyl 500 mg IV every 8 hours with transitioning to oral Flagyl on discharge, all with stop date 09/04/2017. The patient was transferred back to [facility] on the evening of 08/23/2017. Discharge summary with recommendations received from [facility] today. 08/26/17: Pt awake and alert. Denies headaches. No nausea or vomiting. Pt states he has pain left 5th finger from jamming it and thinks he may have fractured it. 08/27: When seen this afternoon the patient is sitting up on the edge of the bed watching TV and visiting w/a friend. He did not have a headache or any dizziness when seen but did endorse an occasional headache. He denied any extremity pain, numbness or tingling. There were no sensorimotor deficits upon evaluation. 08/28: This afternoon the patient is awake and alert in bed visiting with his girlfriend and watching TV. He does have a slight headache but denies any dizziness. He has no pain, numbness or tingling to the extremities. He has no sensorimotor deficits with evaluation. 08/29: No new complaints. No headache Tolerating diet No nausea vomiting 08/30: The patient is sitting up in the bed visiting with his girlfriend watching TV. He does say he has had a headache throughout the day but it is better than his headaches before surgery. He denies any dizziness, nausea or vomiting. He has no pain, numbness or tingling to the extremities. He has no sensorimotor deficits upon evaluation. 08/31: Still complains of headaches, a repeat CT brain was obtained yesterday which just showed slight enlargement of the right ventricle. Appears comfortable, appears in no apparent distress. 09/01: reports headaches much better today, no new neuro complaints. 09/02: doing well, no worsening headaches, c/o of mild sore throat, using his laptop at bedside. 09/03: Patient awake in bed when seen this afternoon. He still has a slight headache but states that it is better than on . He does say that the Fioricet helps with his headache. He also states that his throat is sore and he has swollen glands. There were no sensorimotor deficits noted upon evaluation. His neck was supple and no enlarged nodes were palpated. 09/04: Today the patient is asleep when seen but awakens to voice. He does say he has a slight headache but it is better than yesterday. He denies any nausea or vomiting. He does say the neck is sore still. He has no extremity pain, numbness, tingling or weakness. Upon evaluation he has no sensorimotor deficits. He had a repeat CT brain yesterday which was improved from although the right ventricle is slightly larger than the left. 09/05: No new complaints. No headache Tolerating diet No nausea vomiting 09/06: This morning the patient is doing well and has no complaints. He denies any headache, dizziness, fever or chills. He has no extremity pain, numbness, tingling or weakness. There is no change in is neuro exam upon evaluation. Therefore the patient was discharged in the afternoon. Pt Condition on Discharge: Good Discharge Disposition: Discharge Home Discharge Instructions DIET: Follow Instructions for: As Tolerated, No Restrictions ACTIVITIES You can perform: Shower/Bath, Full Weight Bearing Activities to Avoid: Concussion Sports, Contact Sports, Strenuous Activity, Driving Additional Information You may gently wash the scalp and then pat dry. You may take acetaminophen per the package directions for a headache. Avoid taking any medication that contains NSAIDs (ibuprofen, naproxen, Motrin, Advil, Naprosyn) for at least three months. No smoking for at least three months. Follow up on Sunday at 2:30. If you are unable to keep your appointment call the office at [phone] to reschedule your follow up appointment. Call the office for any worsening headache, visual difficulty, confusion or other concerns. Tutu Woodruff Sep 06, 2017 15:59
== END 2017-09-06 17:07 | disposition home or self-care (01) | DRG 56 ==
LOC: N05B 19:11
PROVIDERS: ADMIT Neurological Surgery; ATTEND Neurological Surgery
DX: G91.9 Hydrocephalus, unspecified (principal); G04.90 Encephalitis and encephalomyelitis, unspecified; F17.210 Nicotine dependence, cigarettes, uncomplicated; G93.89 Other specified disorders of brain; M19.242 Secondary osteoarthritis, left hand; B19.20 Unspecified viral hepatitis C without hepatic coma; F19.10 Other psychoactive substance abuse, uncomplicated; Z98.2 Presence of cerebrospinal fluid drainage device; Z86.73 Personal history of transient ischemic attack (TIA), and cerebral infarction without residual deficits; Z87.81 Personal history of (healed) traumatic fracture
CPT/HCPCS: 70450; 73130; 80048; 80202; 82565; 85025; 94150; J0692; J3370; J7040; J7050